=== PATIENT | male | born 1985 | race Caucasian/White ===

== ENCOUNTER 2016-08-15 11:05 | Emergency (ER) | payer BC ==
--- NOTE | 2016-08-15 11:18 | EDM.PDOC ---
ED HPI GI/ABDOMINAL - General Chief Complaint: Abdominal Pain Stated Complaint: pancreas pain Time Seen by Provider: 08/15/16 11:12 Source of Information: Reports: Patient, RN, RN notes reviewed History Limitations: Reports: No limitations - History of Present Illness INITIAL COMMENTS - FREE TEXT/NARRATIVE: C/O abdominal pain. Hx of chronic pancreatitis with recurrent abdominal pain. Denies fever, chills, diarrhea, or constipation. Pt states that his current Sx' s are the same as his past episodes. Pt states he has an appt. in [place] later this month with his specialist. Symptom Onset Date: 08/15/16 Timing/Duration: Reports: Constant Location: other (epigastric) Quality: Reports: ache, cramping Severity: severe Context: Reports: other (chronic/recurrent). Denies: sick contact, bad/ questionable food, out of country travel, recent surgery, recent trauma, lifting , activity/exercise Associated Symptoms: Reports: denies other symptoms - Related Data Allergies/ADRs: Allergies Allergy/AdvReac Type Severity Reaction Status Date / Time cats Allergy Itching Uncoded 08/15/16 11:13 Home Meds: Home Meds Omeprazole [Prilosec] 20 mg PO BID 10/27/13 [History] Amylase/Lipase/Protease [Creangela DR 24,000 Unit] 15 cap PO TIDMEALS 02/23/14 [ History] Metoclopramide [Reglan] 10 mg PO QID 02/23/14 [History] Escitalopram [Lexapro] 20 mg PO DAILY 09/02/14 [History] Ondansetron [Zofran ODT] 4 mg PO Q4H PRN #20 tab.dis 03/15/15 [Rx] oxyCODONE HCl/Acetaminophen [Endocet 10-325 mg Tablet] 1 each PO Q6HR PRN #32 tablet 04/14/15 [Rx] Pregabalin [Lyrica] 75 mg PO TID 03/07/16 [History] Past Medical History - Past Health History Medical/Surgical History: Denies Medical/Surgical History HEENT History: Reports: Impaired vision Other HEENT History: wears glasses Cardiovascular History: Reports: None Respiratory History: Reports: None Gastrointestinal History: Reports: Pancreatitis Other Gastrointestinal History: Stents placed in pancrease, sphinctor of bessy surgery . 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 Stone was removed last summer in December-Jan. Hematologic History: Reports: None Immunologic History: Reports: None Oncologic (Cancer) History: Reports: None Other Dermatologic History: allergic to cats - Infectious Disease History Infectious Disease History: Reports: None - Past Surgical History Head Surgeries/Procedures: Reports: None GI Surgical History: Reports: Cholecystectomy, Colostomy, EGD Social & Family History - Family History Family Medical History: Noncontributory Cardiac: Reports: CAD, Stent Respiratory: Reports: None GI: Reports: None Neurological: Reports: CVA Oncologic: Reports: Breast, Other (see below) Other Oncologic Family History: STOMACH - Tobacco Use Smoking Status *Q: Current Every Day Smoker Years of Tobacco use: 12 Packs/Tins Daily: 0.5 Used Tobacco, but Quit: No Month Tobacco Last Used: 2 weeks Second Hand Smoke Exposure: Yes - Caffeine Use Caffeine Use: Reports: None - Alcohol Use Days Per Week of Alcohol Use: 0 - Recreational Drug Use Recreational Drug Use: Yes Drug Use in Last 12 Months: Yes Recreational Drug Type: Reports: Marijuana/Hashish Recreational Drug Use Frequency: Weekly Recreational Drug Last Use: 07/07/2016 - Living Situation & Occupation Living situation: Reports: single, alone Occupation: unemployed ED ROS GENERAL - Review of Systems Review Of Systems: ROS reveals no pertinent complaints other than HPI. ED EXAM, GI/ABD - Physical Exam Exam: See Below Exam Limited By: No limitations General Appearance: alert, WD/WN, anxious, mild distress (due to pain), obese Eyes: bilateral: normal appearance, EOMI Throat/Mouth: Normal inspection, Normal lips, Normal teeth, Normal gums, Normal oropharynx, Normal voice, No airway compromise Head: atraumatic Neck: normal inspection, supple, non-tender, full range of motion Respiratory/Chest: no respiratory distress, lungs clear, normal breath sounds, no accessory muscle use, chest non-tender Cardiovascular: regular rate, rhythm, tachycardia GI/Abdominal: normal bowel sounds, soft, no organomegaly, no distention, no abnormal bruit, no mass, tenderness (epigastric and RUQ). No: guarding, rebound , rigidity Back Exam: normal inspection. No: CVA tenderness (L), CVA tenderness (R) Extremities: normal inspection Neurological: alert, oriented, normal cognition, normal gait, no motor/sensory deficits Psychiatric: anxious Skin Exam: Warm, Intact, Normal color, No rash, Diaphoretic Course - Vital Signs Last Recorded V/S: Last Vital Signs Temp 36.0 C 08/15/16 11:14 Pulse 113 H 08/15/16 11:14 Resp 20 08/15/16 11:14 BP 162/124 H 08/15/16 11:14 Pulse Ox 99 08/15/16 11:14 - Orders/Labs/Meds Orders: Active Orders 24 hr Category Date Time Status Peripheral IV Care [RC] . DIRECTED Care 08/15/16 11:33 Active HYDROmorphone [Dilaudid] Med 08/15/16 13:13 Once 1 mg IVPUSH ONETIME ONE Promethazine [Phenergan] Med 08/15/16 13:13 Once 50 mg IM ONETIME ONE Sodium Chloride 0.9% [Saline Flush] Med 08/15/16 11:33 Active 10 ml FLUSH ASDIRECTED PRN Peripheral IV Insertion Adult [OM.PC] Stat Oth 08/15/16 11:32 Ordered Medication Orders Hydromorphone HCl (Dilaudid) 1 mg IVPUSH ONETIME ONE Stop: 08/15/16 13:14 Promethazine HCl (Phenergan) 50 mg IM ONETIME ONE Stop: 08/15/16 13:14 Sodium Chloride (Saline Flush) 10 ml FLUSH ASDIRECTED PRN PRN Reason: Keep Vein Open Last Admin: 08/15/16 11:54 Dose: 10 ml Labs: Laboratory Tests 08/15/16 08/15/16 Range/Units 11:40 11:40 WBC 14.1 H (5.0-10.0) 10^3/uL RBC 4.68 (4.6-6.2) 10^6/uL Hgb 14.2 (14.0-18.0) g/dL Hct 43.0 (40.0-54.0) % MCV 91.9 (80-100) fL MCH 30.3 (27.0-34.0) pg MCHC 33.0 (33.0-35.0) g/dL Plt Count 218 (150-450) 10^3/uL Neut % (Auto) 76.5 H (42.2-75.2) % Lymph % (Auto) 15.2 L (20.5-50.1) % [place] % (Auto) 4.9 (2-8) % Eos % (Auto) 2.8 (1.0-3.0) % Baso % (Auto) 0.6 (0.0-1.0) % Sodium 141 (135-145) mmol/L Potassium 3.8 (3.6-5.0) mmol/L Chloride 105 (101-111) mmol/L Carbon Dioxide 26.0 (21.0-31.0) mmol/L Anion Gap 13.8 BUN 11 (7-18) mg/dL Creatinine 0.8 (0.6-1.3) mg/dL Est Cr Clr Drug Dosing 155.55 mL/min Estimated GFR (MDRD) > 60 BUN/Creatinine Ratio 13.75 Glucose 118 H (74-105) mg/dL Calcium 9.2 (8.4-10.2) mg/dl Total Bilirubin 0.8 (0.2-1.0) mg/dL AST 18 (10-42) IU/L ALT 16 (10-60) IU/L Alkaline Phosphatase 62 (42-121) IU/L Total Protein 7.2 (6.7-8.2) g/dl Albumin 4.5 (3.2-5.5) g/dl Globulin 2.7 Albumin/Globulin Ratio 1.67 Amylase 68 (28-100) U/L Lipase 58 H (22-51) U/L Meds: Medications Generic Name Dose Route Start Last Admin Trade Name Freq PRN Reason Stop Dose Admin Hydromorphone HCl 1 mg 08/15/16 13:13 Dilaudid IVPUSH 08/15/16 13:14 ONETIME ONE Promethazine HCl 50 mg 08/15/16 13:13 Phenergan IM 08/15/16 13:14 ONETIME ONE Sodium Chloride 10 ml 08/15/16 11:33 08/15/16 11:54 Saline Flush FLUSH 10 ml ASDIRECTED PRN Administration Keep Vein Open Discontinued Medications Generic Name Dose Route Start Last Admin Trade Name Freq PRN Reason Stop Dose Admin Diphenhydramine HCl 25 mg 08/15/16 11:33 08/15/16 11:52 Benadryl IVPUSH 08/15/16 11:34 25 mg ONETIME ONE Administration Hydromorphone HCl 1 mg 08/15/16 11:33 08/15/16 11:54 Dilaudid IVPUSH 08/15/16 11:34 1 mg ONETIME ONE Administration Sodium Chloride 1,000 mls @ 999 mls/hr 08/15/16 11:33 08/15/16 11:49 Normal Saline IV 08/15/16 12:33 999 mls/hr .BOLUS ONE Administration Ondansetron HCl 4 mg 08/15/16 11:33 08/15/16 11:50 Zofran IV 08/15/16 11:34 4 mg ONETIME ONE Administration Departure - Departure Time of Disposition: 13:17 Disposition: Home, Self-Care 01 Condition: fair Clinical Impression: Recurrent right upper quadrant abdominal pain, Chronic abdominal pain, History of chronic pancreatitis Vomiting Qualifiers: Vomiting type: unspecified Nausea presence: with nausea Qualified Code(s): R11.2 - Nausea with vomiting, unspecified Instructions: Abdominal Pain, Adult, [id number] Forms: ED Department Discharge Additional Instructions: Follow up in clinic with your doctor if not completely improved by tomorrow. - My Orders Last 24 Hours: My Active Orders 08/15/16 11:32 Peripheral IV Insertion Adult [OM.PC] Stat 08/15/16 11:33 Peripheral IV Care [RC] . DIRECTED Sodium Chloride 0.9% [Saline Flush] 10 ml FLUSH ASDIRECTED PRN 08/15/16 13:13 HYDROmorphone [Dilaudid] 1 mg IVPUSH ONETIME ONE Promethazine [Phenergan] 50 mg IM ONETIME ONE - Assessment/Plan Last 24 Hours: My Active Orders 08/15/16 11:32 Peripheral IV Insertion Adult [OM.PC] Stat 08/15/16 11:33 Peripheral IV Care [RC] . DIRECTED Sodium Chloride 0.9% [Saline Flush] 10 ml FLUSH ASDIRECTED PRN 08/15/16 13:13 HYDROmorphone [Dilaudid] 1 mg IVPUSH ONETIME ONE Promethazine [Phenergan] 50 mg IM ONETIME ONE
[2016-08-15] MEDS ORDERED: Sodium Chloride 0.9% 10 ML Syringe FLUSH PRN (11:33)
[2016-08-15] MEDS ORDERED: Sodium Chloride 0.9% 1,000 ML IV ONE (11:33)
[2016-08-15] MEDS ORDERED: Ondansetron 4 MG/2 ML SDV IV ONE (11:33)
[2016-08-15] MEDS ORDERED: diphenhydrAMINE 50 MG/ML SDV IVPUSH ONE (11:33)
[2016-08-15] MEDS ORDERED: HYDROmorphone 1 MG/ML Syringe IVPUSH ONE ×2 (11:33→13:13)
[2016-08-15 12:09] LABS: CHLORIDE,CL 105 mmol/L (101-111); SODIUM,NA 141 mmol/L (135-145)
[2016-08-15] MEDS ORDERED: Promethazine 25 MG/ML SDV IM ONE (13:13)
[2016-08-15 14:03] VITALS: BP 122/75
== END 2016-08-15 13:56 | disposition home or self-care (01) ==
LOC: DL.ED 11:05
DX: R10.11 Right upper quadrant pain (principal); R10.13 Epigastric pain; R11.2 Nausea with vomiting, unspecified; F41.9 Anxiety disorder, unspecified; F32.9 Major depressive disorder, single episode, unspecified; F17.210 Nicotine dependence, cigarettes, uncomplicated; Z90.49 Acquired absence of other specified parts of digestive tract; Z79.899 Other long term (current) drug therapy; Z91.09 Other allergy status, other than to drugs and biological substances
CPT/HCPCS: 36415; 80053; 82150; 83690; 85025; 96361; 96372; 96374; 96375; 96376; 99284; J1170; J1200; J2405; J2550; J7030; J7050

== ENCOUNTER 2016-10-17 15:14 | Emergency (ER) | payer BC ==
--- NOTE | 2016-10-17 15:19 | EDM.PDOC ---
ED HPI GENERAL MEDICAL PROBLEM - General Chief Complaint: Abdominal Pain Stated Complaint: PANCRITIS Time Seen by Provider: 10/17/16 15:19 Source of Information: Reports: Patient, Old records, RN, RN notes reviewed History Limitations: Reports: No limitations - History of Present Illness INITIAL COMMENTS - FREE TEXT/NARRATIVE: Complaining of onset of severe chronic/recurrent RUQ/epigastric pain this morning. Patient reports symptoms are "exactly the same" as his usual abdominal pain. Denies fever or chills. Unable to keep down his oral meds. Onset: today Location: Reports: abdomen Quality: Reports: Ache Severity: severe Improves with: Reports: None Worsens with: Reports: None Associated Symptoms: Reports: no other symptoms Right Upper Abdomen Pain Score (Numeric/FACES): 8 - Related Data Allergies Allergy/AdvReac Type Severity Reaction Status Date / Time cats Allergy Itching Uncoded 08/15/16 11:13 Home Meds: Home Meds Omeprazole [Prilosec] 20 mg PO BID 10/27/13 [History] Amylase/Lipase/Protease [Creangela DR 24,000 Unit] 15 cap PO TIDMEALS 02/23/14 [ History] Metoclopramide [Reglan] 10 mg PO QID 02/23/14 [History] Escitalopram [Lexapro] 20 mg PO DAILY 09/02/14 [History] Ondansetron [Zofran ODT] 4 mg PO Q4H PRN #20 tab.dis 03/15/15 [Rx] oxyCODONE HCl/Acetaminophen [Endocet 10-325 mg Tablet] 1 each PO Q6HR PRN #32 tablet 04/14/15 [Rx] Pregabalin [Lyrica] 75 mg PO TID 03/07/16 [History] Past Medical History - Past Health History Medical/Surgical History: Denies Medical/Surgical History HEENT History: Reports: Impaired vision Other HEENT History: wears glasses Cardiovascular History: Reports: None Respiratory History: Reports: None Gastrointestinal History: Reports: Pancreatitis Other Gastrointestinal History: Stents placed in pancrease, sphinctor of bessy surgery . 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 Stone was removed last summer in December-Jan. Hematologic History: Reports: None Immunologic History: Reports: None Oncologic (Cancer) History: Reports: None Other Dermatologic History: allergic to cats - Infectious Disease History Infectious Disease History: Reports: None - Past Surgical History Head Surgeries/Procedures: Reports: None GI Surgical History: Reports: Cholecystectomy, Colostomy, EGD Social & Family History - Family History Family Medical History: Noncontributory Cardiac: Reports: CAD, Stent Respiratory: Reports: None GI: Reports: None Neurological: Reports: CVA Oncologic: Reports: Breast, Other (see below) Other Oncologic Family History: STOMACH - Tobacco Use Smoking Status *Q: Current Every Day Smoker Years of Tobacco use: 12 Packs/Tins Daily: 0.5 Used Tobacco, but Quit: No Month Tobacco Last Used: 2 weeks Second Hand Smoke Exposure: Yes - Caffeine Use Caffeine Use: Reports: None - Alcohol Use Days Per Week of Alcohol Use: 0 - Recreational Drug Use Recreational Drug Use: Yes Drug Use in Last 12 Months: Yes Recreational Drug Type: Reports: Marijuana/Hashish Recreational Drug Use Frequency: Weekly Recreational Drug Last Use: 07/07/2016 - Living Situation & Occupation Living situation: Reports: single, alone Occupation: unemployed ED ROS GENERAL - Review of Systems Review Of Systems: ROS reveals no pertinent complaints other than HPI. ED EXAM, GI/ABD - Physical Exam Exam: See Below Exam Limited By: No limitations General Appearance: alert, WD/WN, no apparent distress Eyes: bilateral: normal appearance Ears: normal external exam, normal canal, hearing grossly normal, normal TMs Nose: normal inspection, normal mucosa, no blood Throat/Mouth: Normal inspection, Normal lips, Normal teeth, Normal gums, Normal oropharynx, Normal voice, No airway compromise Head: atraumatic, normocephalic Neck: normal inspection, supple, non-tender, full range of motion Respiratory/Chest: no respiratory distress, lungs clear, normal breath sounds, no accessory muscle use, chest non-tender Cardiovascular: regular rate, rhythm, tachycardia GI/Abdominal: Other (RUQ tenderness) Back Exam: normal inspection, full range of motion, NT Extremities: normal inspection, normal range of motion, non-tender, normal capillary refill, no pedal edema Neurological: alert, oriented, CN II-XII intact, normal cognition, normal gait, normal reflexes, no motor/sensory deficits Psychiatric: normal affect, normal mood Skin Exam: Warm, Dry, Intact, Normal color, No rash Course - Vital Signs Last Recorded V/S: Last Vital Signs Temp 36.0 C 10/17/16 15:27 Pulse 97 10/17/16 15:27 Resp 20 10/17/16 15:27 BP 161/106 H 10/17/16 15:27 Pulse Ox 97 10/17/16 15:27 - Orders/Labs/Meds Orders: Active Orders 24 hr Category Date Time Status Peripheral IV Care [RC] . DIRECTED Care 10/17/16 15:37 Active Sodium Chloride 0.9% [Saline Flush] Med 10/17/16 15:36 Active 10 ml FLUSH ASDIRECTED PRN Peripheral IV Insertion Adult [OM.PC] Stat Oth 10/17/16 15:36 Ordered Medication Orders Sodium Chloride (Saline Flush) 10 ml FLUSH ASDIRECTED PRN PRN Reason: Keep Vein Open Last Admin: 10/17/16 16:03 Dose: 10 ml Labs: Laboratory Tests 10/17/16 10/17/16 Range/Units 15:45 15:45 WBC 17.1 H (5.0-10.0) 10^3/uL RBC 5.02 (4.6-6.2) 10^6/uL Hgb 15.2 (14.0-18.0) g/dL Hct 46.4 (40.0-54.0) % MCV 92.4 (80-100) fL MCH 30.3 (27.0-34.0) pg MCHC 32.8 L (33.0-35.0) g/dL Plt Count 219 (150-450) 10^3/uL Neut % (Auto) 74.2 (42.2-75.2) % Lymph % (Auto) 16.9 L (20.5-50.1) % [place] % (Auto) 6.7 (2-8) % Eos % (Auto) 1.8 (1.0-3.0) % Baso % (Auto) 0.4 (0.0-1.0) % Sodium 141 (135-145) mmol/L Potassium 4.0 (3.6-5.0) mmol/L Chloride 107 (101-111) mmol/L Carbon Dioxide 27.0 (21.0-31.0) mmol/L Anion Gap 11.0 BUN 14 (7-18) mg/dL Creatinine 0.8 (0.6-1.3) mg/dL Est Cr Clr Drug Dosing 155.55 mL/min Estimated GFR (MDRD) > 60 BUN/Creatinine Ratio 17.50 Glucose 113 H (74-105) mg/dL Calcium 9.4 (8.4-10.2) mg/dl Total Bilirubin 0.8 (0.2-1.0) mg/dL AST 20 (10-42) IU/L ALT 17 (10-60) IU/L Alkaline Phosphatase 73 (42-121) IU/L Total Protein 7.4 (6.7-8.2) g/dl Albumin 4.6 (3.2-5.5) g/dl Globulin 2.8 Albumin/Globulin Ratio 1.64 Amylase 69 (28-100) U/L Lipase 47 (22-51) U/L Meds: Medications Generic Name Dose Route Start Last Admin Trade Name Freq PRN Reason Stop Dose Admin Sodium Chloride 10 ml 10/17/16 15:36 10/17/16 16:03 Saline Flush FLUSH 10 ml ASDIRECTED PRN Administration Keep Vein Open Discontinued Medications Generic Name Dose Route Start Last Admin Trade Name Freq PRN Reason Stop Dose Admin Diphenhydramine HCl 25 mg 10/17/16 15:36 10/17/16 16:04 Benadryl IVPUSH 10/17/16 15:37 25 mg ONETIME ONE Administration Diphenhydramine HCl 25 mg 10/17/16 16:28 10/17/16 16:47 Benadryl IVPUSH 10/17/16 16:29 25 mg ONETIME ONE Administration Hydromorphone HCl 1 mg 10/17/16 15:36 10/17/16 16:05 Dilaudid IVPUSH 10/17/16 15:37 1 mg ONETIME ONE Administration Sodium Chloride 1,000 mls @ 999 mls/hr 10/17/16 15:36 10/17/16 16:01 Normal Saline IV 10/17/16 16:36 999 mls/hr .BOLUS ONE Administration Lorazepam 2 mg 10/17/16 16:28 10/17/16 16:48 Ativan IVPUSH 10/17/16 16:29 2 mg ONETIME ONE Administration Metoclopramide HCl 10 mg 10/17/16 16:28 10/17/16 16:50 Reglan IVPUSH 10/17/16 16:29 10 mg ONETIME ONE Administration Ondansetron HCl 4 mg 10/17/16 15:36 10/17/16 16:02 Zofran IV 10/17/16 15:37 4 mg ONETIME ONE Administration Departure - Departure Time of Disposition: 17:42 Disposition: Home, Self-Care 01 Condition: fair Clinical Impression: Recurrent right upper quadrant abdominal pain, History of chronic pancreatitis - Discharge Information Instructions: Abdominal Pain, Adult, [id number] Referrals: Max Gordon MD [Primary Care Provider] - Forms: ED Department Discharge Additional Instructions: Follow up with Dr. Gordon tomorrow if not completely improved. Follow up with your specialist this month as scheduled. - My Orders Last 24 Hours: My Active Orders 10/17/16 15:36 Sodium Chloride 0.9% [Saline Flush] 10 ml FLUSH ASDIRECTED PRN Peripheral IV Insertion Adult [OM.PC] Stat 10/17/16 15:37 Peripheral IV Care [RC] . DIRECTED - Assessment/Plan Last 24 Hours: My Active Orders 10/17/16 15:36 Sodium Chloride 0.9% [Saline Flush] 10 ml FLUSH ASDIRECTED PRN Peripheral IV Insertion Adult [OM.PC] Stat 10/17/16 15:37 Peripheral IV Care [RC] . DIRECTED
[2016-10-17 15:28] VITALS: BP 161/106
[2016-10-17] MEDS ORDERED: Sodium Chloride 0.9% 1,000 ML IV ONE (15:36)
[2016-10-17] MEDS ORDERED: HYDROmorphone 1 MG/ML Syringe IVPUSH ONE (15:36)
[2016-10-17] MEDS ORDERED: Sodium Chloride 0.9% 10 ML Syringe FLUSH PRN (15:36)
[2016-10-17] MEDS ORDERED: diphenhydrAMINE 50 MG/ML SDV IVPUSH ONE ×2 (15:36→16:28)
[2016-10-17] MEDS ORDERED: Ondansetron 4 MG/2 ML SDV IV ONE (15:36)
[2016-10-17 16:13] LABS: CHLORIDE,CL 107 mmol/L (101-111); SODIUM,NA 141 mmol/L (135-145)
[2016-10-17] MEDS ORDERED: Metoclopramide 10 MG/2 ML SDV IVPUSH ONE (16:28)
[2016-10-17] MEDS ORDERED: LORazepam 2 MG/ML Syringe IVPUSH ONE (16:28)
== END 2016-10-17 18:17 | disposition home or self-care (01) ==
LOC: DL.ED 15:14
DX: K86.1 Other chronic pancreatitis (principal); F32.9 Major depressive disorder, single episode, unspecified; F41.9 Anxiety disorder, unspecified; K21.9 Gastro-esophageal reflux disease without esophagitis; F17.210 Nicotine dependence, cigarettes, uncomplicated; Z90.49 Acquired absence of other specified parts of digestive tract; Z79.899 Other long term (current) drug therapy
CPT/HCPCS: 36415; 80053; 82150; 83690; 85025; 96361; 96374; 96375; 96376; 99283; J1170; J1200; J2060; J2405; J2765; J7030; J7050

== ENCOUNTER 2016-10-17 21:02 | Emergency (ER) | payer BC ==
[2016-10-17 21:18] VITALS: BP 149/86
[2016-10-17] MEDS ORDERED: HYDROmorphone 1 MG/ML Syringe IVPUSH ONE ×2 (21:29→22:25)
[2016-10-17] MEDS ORDERED: Promethazine 25 MG/ML SDV IM ONE (21:29)
--- NOTE | 2016-10-17 21:35 | EDM.PDOC ---
ED HPI GENERAL MEDICAL PROBLEM - General Chief Complaint: Abdominal Pain Stated Complaint: PANCREATITIS Time Seen by Provider: 10/17/16 21:25 Source of Information: Reports: Patient History Limitations: Reports: No limitations - History of Present Illness INITIAL COMMENTS - FREE TEXT/NARRATIVE: This 31 yo male patient returns to the ED for the second time this afternoon with abdominal pain and nausea/vomiting. The patient reports his symptoms are identical to earlier. The patient reports his pain came back about 1 hour after leaving the ED (the patient left the ED at 1830). The patient reports he has another appointment with his specialist scheduled for November 06. The patient was given Benadryl, Ativan, Dilaudid, Zofran, and Reglan on his previous visit. Onset: today Duration: Constant, Getting worse Location: Reports: abdomen Quality: Reports: Ache, Sharp Severity: severe Improves with: Reports: None Worsens with: Reports: None Context: Reports: Other (chronic pancreatitis) Right Upper Abdomen Pain Score (Numeric/FACES): 8 - Related Data Allergies Allergy/AdvReac Type Severity Reaction Status Date / Time cats Allergy Itching Uncoded 10/17/16 21:18 Home Meds: Home Meds Omeprazole [Prilosec] 20 mg PO BID 10/27/13 [History] Amylase/Lipase/Protease [Creon DR 24,000 Unit] 15 cap PO TIDMEALS 02/23/14 [ History] Metoclopramide [Reglan] 10 mg PO QID 02/23/14 [History] Escitalopram [Lexapro] 20 mg PO DAILY 09/02/14 [History] Ondansetron [Zofran ODT] 4 mg PO Q4H PRN #20 tab.dis 03/15/15 [Rx] oxyCODONE HCl/Acetaminophen [Endocet 10-325 mg Tablet] 1 each PO Q6HR PRN #32 tablet 04/14/15 [Rx] Pregabalin [Lyrica] 75 mg PO TID 03/07/16 [History] Past Medical History - Past Health History Medical/Surgical History: Denies Medical/Surgical History HEENT History: Reports: Impaired vision Other HEENT History: wears glasses Cardiovascular History: Reports: None Respiratory History: Reports: None Gastrointestinal History: Reports: Pancreatitis Other Gastrointestinal History: Stents placed in pancrease, sphinctor of bessy surgery . 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 Stone was removed last summer in December-Jan. Hematologic History: Reports: None Immunologic History: Reports: None Oncologic (Cancer) History: Reports: None Other Dermatologic History: allergic to cats - Infectious Disease History Infectious Disease History: Reports: None - Past Surgical History Head Surgeries/Procedures: Reports: None GI Surgical History: Reports: Cholecystectomy, Colostomy, EGD Social & Family History - Family History Family Medical History: Noncontributory Cardiac: Reports: CAD, Stent Respiratory: Reports: None GI: Reports: None Neurological: Reports: CVA Oncologic: Reports: Breast, Other (see below) Other Oncologic Family History: STOMACH - Tobacco Use Smoking Status *Q: Current Every Day Smoker Years of Tobacco use: 13 Packs/Tins Daily: 0.5 Used Tobacco, but Quit: No Month Tobacco Last Used: 2 weeks Second Hand Smoke Exposure: Yes - Caffeine Use Caffeine Use: Reports: None - Alcohol Use Days Per Week of Alcohol Use: 0 - Recreational Drug Use Recreational Drug Use: Yes Drug Use in Last 12 Months: Yes Recreational Drug Type: Reports: Marijuana/Hashish Recreational Drug Use Frequency: Socially Recreational Drug Last Use: 07/07/2016 - Living Situation & Occupation Living situation: Reports: single, alone Occupation: unemployed ED ROS GENERAL - Review of Systems Review Of Systems: ROS reveals no pertinent complaints other than HPI. ED EXAM, GI/ABD - Physical Exam Exam: See Below Exam Limited By: No limitations General Appearance: alert, WD/WN, anxious, severe distress, obese Eyes: bilateral: normal appearance, EOMI Ears: normal external exam, normal canal, hearing grossly normal, normal TMs Nose: normal inspection, normal mucosa, no blood Throat/Mouth: Normal inspection, Normal lips, Normal teeth, Normal gums, Normal oropharynx, Normal voice, No airway compromise Head: atraumatic, normocephalic Neck: normal inspection, supple, non-tender, full range of motion Respiratory/Chest: no respiratory distress, lungs clear, normal breath sounds, no accessory muscle use, chest non-tender Cardiovascular: normal peripheral pulses, regular rate, rhythm, no edema, no gallop, no JVD, no murmur, no rub GI/Abdominal: Normal Bowel Sounds, Soft, No Organomegaly, No Distention, No Abnormal Bruit, No Mass, Tenderness (RUQ) (Male) Exam: Deferred Rectal (Males) Exam: Deferred Back Exam: normal inspection, full range of motion, NT Extremities: normal inspection, normal range of motion, non-tender, normal capillary refill, no pedal edema Neurological: alert, oriented, CN II-XII intact, normal cognition, normal gait, normal reflexes, no motor/sensory deficits Psychiatric: normal affect, normal mood Skin Exam: Warm, Dry, Intact, Normal color, No rash Lymphatic: no adenopathy Course - Vital Signs Last Recorded V/S: Last Vital Signs Temp 36.7 C 10/17/16 21:15 Pulse 97 10/17/16 21:15 Resp 18 10/17/16 21:15 BP 149/86 H 10/17/16 21:15 Pulse Ox 98 10/17/16 21:15 - Orders/Labs/Meds Orders: Active Orders 24 hr Category Date Time Status HYDROmorphone [Dilaudid] Med 10/17/16 22:25 Once 0.5 mg IVPUSH ONETIME ONE Meds: Medications Discontinued Medications Generic Name Dose Route Start Last Admin Trade Name Freq PRN Reason Stop Dose Admin Hydromorphone HCl 1 mg 10/17/16 21:29 10/17/16 21:41 Dilaudid IVPUSH 10/17/16 21:30 1 mg ONETIME ONE Administration Promethazine HCl 50 mg 10/17/16 21:29 10/17/16 21:40 Phenergan IM 10/17/16 21:30 50 mg ONETIME ONE Administration - Re-Assessments/Exams Free Text/Narrative Re-Assessment/Exam: 10/17/16 22:26 The patient had been sleeping for approximately 30 minutes. When I reassessed the patient, he started to report increased pain again. The patient was given an additional dose of Dilaudid (0.5 mg). Departure - Departure Time of Disposition: 22:27 Disposition: Home, Self-Care 01 Condition: fair Clinical Impression: Chronic pancreatitis - Discharge Information Instructions: Acute Pancreatitis, [id number] Forms: ED Department Discharge Care Plan Goals: The patient was advised of the examination results during the visit. Since the patient has been seen twice in the ED this afternoon, the patient should follow- up with his primary care facility tomorrow for continued evaluation and management. If the patient has any additional symptoms or concerns, the patient should either contact his primary care facility or his specialist for further evaluation and management. - My Orders Last 24 Hours: My Active Orders 10/17/16 22:25 HYDROmorphone [Dilaudid] 0.5 mg IVPUSH ONETIME ONE - Assessment/Plan Last 24 Hours: My Active Orders 10/17/16 22:25 HYDROmorphone [Dilaudid] 0.5 mg IVPUSH ONETIME ONE
== END 2016-10-17 22:45 | disposition home or self-care (01) ==
LOC: DL.ED 21:02
DX: K86.1 Other chronic pancreatitis (principal); F41.9 Anxiety disorder, unspecified; F32.9 Major depressive disorder, single episode, unspecified; F17.210 Nicotine dependence, cigarettes, uncomplicated; Z90.49 Acquired absence of other specified parts of digestive tract; Z79.899 Other long term (current) drug therapy; K21.9 Gastro-esophageal reflux disease without esophagitis
CPT/HCPCS: 36415; 80053; 82150; 83690; 85025; 96361; 96372; 96374; 96375; 96376; 99283; J1170; J1200; J2060; J2405; J2550; J2765; J7030; J7050

== ENCOUNTER 2016-12-03 16:16 | Emergency (ER) | payer BC, MEDICAID ==
[2016-12-03] MEDS ORDERED: Sodium Chloride 0.9% 10 ML Syringe FLUSH PRN (17:00)
[2016-12-03] MEDS ORDERED: HYDROmorphone 1 MG/ML Syringe IVPUSH ONE ×2 (17:01→18:10)
[2016-12-03] MEDS ORDERED: Ondansetron 4 MG/2 ML SDV IV ONE (17:01)
[2016-12-03] MEDS ORDERED: Sodium Chloride 0.9% 1,000 ML IV ONE (17:01)
[2016-12-03 17:39] LABS: CHLORIDE,CL 104 mmol/L (101-111); SODIUM,NA 140 mmol/L (135-145)
[2016-12-03] MEDS ORDERED: Iopamidol 612 MG/ML 100 ML Bottle IVPUSH ONE (17:59)
[2016-12-03] MEDS ORDERED: diphenhydrAMINE 50 MG/ML SDV IVPUSH ONE (18:11)
--- NOTE | 2016-12-03 18:30 | EDM.PDOC ---
ED HPI GENERAL MEDICAL PROBLEM - General Chief Complaint: Abdominal Pain Stated Complaint: PANCREAS PROBLEM [phone] Time Seen by Provider: 12/03/16 17:00 Source of Information: Reports: Patient History Limitations: Reports: No Limitations - History of Present Illness INITIAL COMMENTS - FREE TEXT/NARRATIVE: Pt states that he was seen for pancreatitis on yesterday, and believes he is having another flare up. States that he took his pain medication at home but was running out and didn't want to use them up so he came to get re-evaluated. Denies n/v/d. Currently flailing around on stretcher. No other complaitns. States that he normally receives pain medication , zofran and benadryl and he feels better Onset: Today Duration: Getting Worse Location: Reports: Abdomen Quality: Reports: Same as Previous Episode Severity: Moderate Improves with: Reports: Medication Worsens with: Reports: Medication Associated Symptoms: Reports: No Other Symptoms Treatments [employer]: Reports: Other Medication(s) (oxycodone) Right Upper Abdominal Pain Score (Numeric/FACES): 7 - Related Data Allergies Allergy/AdvReac Type Severity Reaction Status Date / Time cats Allergy Itching Uncoded 12/03/16 16:38 Home Meds: Home Meds Omeprazole [Prilosec] 20 mg PO BID 10/27/13 [History] Amylase/Lipase/Protease [Parag DR 24,000 Unit] 15 cap PO TIDMEALS 02/23/14 [ History] Escitalopram [Lexapro] 20 mg PO DAILY 09/02/14 [History] Ondansetron [Zofran ODT] 4 mg PO Q4H PRN #20 tab.dis 03/15/15 [Rx] oxyCODONE HCl/Acetaminophen [Endocet 10-325 mg Tablet] 1 each PO Q6HR PRN #32 tablet 04/14/15 [Rx] Pregabalin [Lyrica] 75 mg PO TID 03/07/16 [History] Past Medical History - Past Health History Medical/Surgical History: Denies Medical/Surgical History HEENT History: Reports: Impaired Vision Other HEENT History: wears glasses Cardiovascular History: Reports: None Respiratory History: Reports: None Gastrointestinal History: Reports: Pancreatitis Other Gastrointestinal History: Stents placed in pancrease, sphinctor of bessy surgery . 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 Stone was removed last summer in December-Jan. Hematologic History: Reports: None Immunologic History: Reports: None Oncologic (Cancer) History: Reports: None Other Dermatologic History: allergic to cats - Infectious Disease History Infectious Disease History: Reports: None - Past Surgical History Head Surgeries/Procedures: Reports: None GI Surgical History: Reports: Cholecystectomy, Colostomy, EGD Social & Family History - Family History Family Medical History: Unobtainable Cardiac: Reports: CAD, Stent Respiratory: Reports: None GI: Reports: None Neurological: Reports: CVA Oncologic: Reports: Breast, Other (See Below) Other Oncologic Family History: STOMACH - Tobacco Use Smoking Status *Q: Current Every Day Smoker Years of Tobacco use: 15 Packs/Tins Daily: 0.5 Used Tobacco, but Quit: No Month Tobacco Last Used: 2 weeks Second Hand Smoke Exposure: Yes - Caffeine Use Caffeine Use: Reports: None - Alcohol Use Days Per Week of Alcohol Use: 0 - Recreational Drug Use Recreational Drug Use: Yes Drug Use in Last 12 Months: Yes Recreational Drug Type: Reports: Marijuana/Hashish Recreational Drug Use Frequency: Socially Recreational Drug Last Use: 12/01/2016 - Living Situation & Occupation Living situation: Reports: Single, Alone Occupation: Unemployed ED ROS GENERAL - Review of Systems Review Of Systems: ROS reveals no pertinent complaints other than HPI. ED EXAM, GI/ABD - Physical Exam Exam: See Below Exam Limited By: No Limitations General Appearance: Alert, WD/WN, No Apparent Distress Eyes: Bilateral: Normal Appearance, EOMI Respiratory/Chest: No Respiratory Distress, Lungs Clear, Normal Breath Sounds, No Accessory Muscle Use, Chest Non-Tender Cardiovascular: Normal Peripheral Pulses, Regular Rate, Rhythm, No Edema, No Gallop, No JVD, No Murmur, No Rub GI/Abdominal: Normal Bowel Sounds, Soft, No Organomegaly, No Distention, No Abnormal Bruit, No Mass, Tenderness, Guarding Neurological: Alert, Oriented, CN II-XII Intact, Normal Cognition, Normal Gait, Normal Reflexes, No Motor/Sensory Deficits Course - Vital Signs Last Recorded V/S: Last Vital Signs Temp 98.8 F 12/03/16 16:35 Pulse 104 H 12/03/16 16:35 Resp 16 12/03/16 16:35 BP 119/80 12/03/16 16:35 Pulse Ox 98 12/03/16 16:35 - Orders/Labs/Meds Orders: Active Orders 24 hr Category Date Time Status Blood Glucose Check, Bedside [RC] ONETIME Care 12/03/16 16:47 Active Sodium Chloride 0.9% [Saline Flush] Med 12/03/16 17:00 Active 10 ml FLUSH ASDIRECTED PRN Saline Lock Insert [OM.PC] Stat Oth 12/03/16 17:00 Ordered Medication Orders Sodium Chloride (Saline Flush) 10 ml FLUSH ASDIRECTED PRN PRN Reason: Keep Vein Open Labs: Laboratory Tests 12/03/16 12/03/16 12/03/16 Range/Units 16:37 17:08 17:08 WBC 11.8 H (5.0-10.0) 10^3/uL RBC 4.64 (4.6-6.2) 10^6/uL Hgb 14.2 (14.0-18.0) g/dL Hct 42.2 (40.0-54.0) % MCV 90.9 (80-100) fL MCH 30.6 (27.0-34.0) pg MCHC 33.6 (33.0-35.0) g/dL Plt Count 185 (150-450) 10^3/uL Neut % (Auto) 70.1 (42.2-75.2) % Lymph % (Auto) 21.6 (20.5-50.1) % [place] % (Auto) 6.5 (2-8) % Eos % (Auto) 1.4 (1.0-3.0) % Baso % (Auto) 0.4 (0.0-1.0) % Sodium 140 (135-145) mmol/L Potassium 3.8 (3.6-5.0) mmol/L Chloride 104 (101-111) mmol/L Carbon Dioxide 24.0 (21.0-31.0) mmol/L Anion Gap 15.8 BUN 11 (7-18) mg/dL Creatinine 0.8 (0.6-1.3) mg/dL Est Cr Clr Drug Dosing 155.55 mL/min Estimated GFR (MDRD) > 60 Glucose 101 (74-105) mg/dL POC Glucose 101 (70-105) mg/dl Calcium 9.2 (8.4-10.2) mg/dl Amylase 49 (28-100) U/L Lipase 26 (22-51) U/L Meds: Medications Generic Name Dose Route Start Last Admin Trade Name Freq PRN Reason Stop Dose Admin Sodium Chloride 10 ml 12/03/16 17:00 Saline Flush FLUSH ASDIRECTED PRN Keep Vein Open Discontinued Medications Generic Name Dose Route Start Last Admin Trade Name Freq PRN Reason Stop Dose Admin Diphenhydramine HCl 25 mg 12/03/16 18:11 12/03/16 18:36 Benadryl IVPUSH 12/03/16 18:12 25 mg ONETIME ONE Administration Hydromorphone HCl 0.5 mg 12/03/16 17:01 12/03/16 17:14 Dilaudid IVPUSH 12/03/16 17:02 0.5 mg ONETIME ONE Administration Hydromorphone HCl 0.5 mg 12/03/16 18:10 12/03/16 18:36 Dilaudid IVPUSH 12/03/16 18:11 0.5 mg ONETIME ONE Administration Sodium Chloride 1,000 mls @ 999 mls/hr 12/03/16 17:01 12/03/16 17:14 Normal Saline IV 12/03/16 18:01 999 mls/hr .BOLUS ONE Administration Iopamidol 100 ml 12/03/16 17:59 12/03/16 18:10 Isovue-300 (61%) IVPUSH 12/03/16 18:00 100 ml ONETIME ONE Administration Ondansetron HCl 4 mg 12/03/16 17:01 12/03/16 17:14 Zofran IV 12/03/16 17:02 4 mg ONETIME ONE Administration - Re-Assessments/Exams Free Text/Narrative Re-Assessment/Exam: 12/03/16 18:59 No acute pancreatitis or acute abdomen. Pt states that per Dr. epstein at [facility], he does not have elvated labs with his pancreatitis. States that he has a 10am appt with Dr. Brewster in the morning that he will follow up with. encouraged to continue his pain medication, drink plenty of fluids and rest until tomorrow's appt. Departure - Departure Time of Disposition: 19:01 Disposition: Refer to Observation Clinical Impression: Abdominal pain Qualifiers: Abdominal location: epigastric Qualified Code(s): R10.13 - Epigastric pain - Discharge Information Instructions: Abdominal Pain, Adult, [id number] Forms: ED Department Discharge Additional Instructions: Take your pain medication as needed for abdominal pain. Drink plenty of fluids and get some rest. Follow up with Dr. brewster in the am for follow up. Let him know that you were seen in the ER today as he may want to order more test or be able to request the results of today's visit. - My Orders Last 24 Hours: My Active Orders 12/03/16 16:47 Blood Glucose Check, Bedside [RC] ONETIME 12/03/16 17:00 Sodium Chloride 0.9% [Saline Flush] 10 ml FLUSH ASDIRECTED PRN Saline Lock Insert [OM.PC] Stat - Assessment/Plan Last 24 Hours: My Active Orders 12/03/16 16:47 Blood Glucose Check, Bedside [RC] ONETIME 12/03/16 17:00 Sodium Chloride 0.9% [Saline Flush] 10 ml FLUSH ASDIRECTED PRN Saline Lock Insert [OM.PC] Stat
[2016-12-03 19:06] VITALS: BP 118/80
== END 2016-12-03 19:18 | disposition home or self-care (01) ==
LOC: DL.ED 16:16
DX: R10.13 Epigastric pain (principal); Z90.49 Acquired absence of other specified parts of digestive tract; K57.30 Diverticulosis of large intestine without perforation or abscess without bleeding; F41.9 Anxiety disorder, unspecified; F32.9 Major depressive disorder, single episode, unspecified; Z79.899 Other long term (current) drug therapy; Z91.048 Other nonmedicinal substance allergy status; F17.210 Nicotine dependence, cigarettes, uncomplicated; F12.980 Cannabis use, unspecified with anxiety disorder
CPT/HCPCS: 36415; 74177; 80048; 82150; 82962; 83690; 85025; 96365; 96375; 96376; 99284; J1170; J1200; J2405; J7030; Q9967

== ENCOUNTER 2016-12-04 06:14 | Emergency (ER) | payer MEDICAID ==
[2016-12-04] MEDS ORDERED: diphenhydrAMINE 50 MG/ML SDV IVPUSH ONE (06:32)
[2016-12-04] MEDS ORDERED: Ondansetron 4 MG/2 ML SDV IV ONE (06:33)
[2016-12-04] MEDS ORDERED: HYDROmorphone 1 MG/ML Syringe IVPUSH ONE ×2 (06:33→07:50)
[2016-12-04] MEDS ORDERED: Sodium Chloride 0.9% 1,000 ML IV ONE (06:34)
[2016-12-04 07:13] LABS: CHLORIDE,CL 104 mmol/L (101-111); SODIUM,NA 140 mmol/L (135-145)
--- NOTE | 2016-12-04 07:33 | EDM.PDOC ---
ED HPI GENERAL MEDICAL PROBLEM - General Chief Complaint: Abdominal Pain Stated Complaint: PANCREAS PROBLEMS Time Seen by Provider: 12/04/16 07:18 Source of Information: Reports: Patient History Limitations: Reports: No Limitations - History of Present Illness INITIAL COMMENTS - FREE TEXT/NARRATIVE: Pt was here last night for c/o abdominal pain due to h/o pancreatitis. Lab and imaging obtained revealed no acute process. Pt returns stating that he started having the abdominal pain again and needed some relief. States that he has an appointment this am with Dr. Cruz to establish care. Denies eating but tried to take in some fluids and began vomiting. No vomiting noted currently. Onset: Today Onset Time: 05:00 Duration: Getting Worse Location: Reports: Abdomen Quality: Reports: Same as Previous Episode Severity: Moderate Improves with: Reports: Medication Worsens with: Reports: None Context: Reports: Activity Associated Symptoms: Reports: Nausea/Vomiting Left Abdomen Pain Score (Numeric/FACES): 8 - Related Data Allergies Allergy/AdvReac Type Severity Reaction Status Date / Time cats Allergy Itching Uncoded 12/04/16 06:24 Home Meds: Home Meds Omeprazole [Prilosec] 20 mg PO BID 10/27/13 [History] Amylase/Lipase/Protease [Parag DR 24,000 Unit] 15 cap PO TIDMEALS 02/23/14 [ History] Escitalopram [Lexapro] 20 mg PO DAILY 09/02/14 [History] Ondansetron [Zofran ODT] 4 mg PO Q4H PRN #20 tab.dis 03/15/15 [Rx] oxyCODONE HCl/Acetaminophen [Endocet 10-325 mg Tablet] 1 each PO Q6HR PRN #32 tablet 04/14/15 [Rx] Pregabalin [Lyrica] 75 mg PO TID 03/07/16 [History] Past Medical History - Past Health History Medical/Surgical History: Denies Medical/Surgical History HEENT History: Reports: Impaired Vision Other HEENT History: wears glasses Cardiovascular History: Reports: None Respiratory History: Reports: None Gastrointestinal History: Reports: Pancreatitis Other Gastrointestinal History: Stents placed in pancrease, sphinctor of bessy surgery . 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 Stone was removed last summer in December-Jan. Hematologic History: Reports: None Immunologic History: Reports: None Oncologic (Cancer) History: Reports: None Other Dermatologic History: allergic to cats - Infectious Disease History Infectious Disease History: Reports: None - Past Surgical History Head Surgeries/Procedures: Reports: None GI Surgical History: Reports: Cholecystectomy, Colostomy, EGD Social & Family History - Family History Family Medical History: Unobtainable Cardiac: Reports: CAD, Stent Respiratory: Reports: None GI: Reports: None Neurological: Reports: CVA Oncologic: Reports: Breast, Other (See Below) Other Oncologic Family History: STOMACH - Tobacco Use Smoking Status *Q: Current Every Day Smoker Years of Tobacco use: 18 Packs/Tins Daily: 0.2 Used Tobacco, but Quit: No Month Tobacco Last Used: 2 weeks Second Hand Smoke Exposure: No - Caffeine Use Caffeine Use: Reports: None - Alcohol Use Days Per Week of Alcohol Use: 0 - Recreational Drug Use Recreational Drug Use: Yes Drug Use in Last 12 Months: Yes Recreational Drug Type: Reports: Marijuana/Hashish Recreational Drug Use Frequency: Weekly Recreational Drug Last Use: 12/01/2016 - Living Situation & Occupation Living situation: Reports: Single, Alone Occupation: Unemployed ED ROS GENERAL - Review of Systems Review Of Systems: ROS reveals no pertinent complaints other than HPI. ED EXAM, GI/ABD - Physical Exam Exam: See Below Exam Limited By: No Limitations General Appearance: Alert, WD/WN, Mild Distress Eyes: Bilateral: Normal Appearance Respiratory/Chest: No Respiratory Distress, Lungs Clear, Normal Breath Sounds, No Accessory Muscle Use, Chest Non-Tender Cardiovascular: Normal Peripheral Pulses, Regular Rate, Rhythm, No Edema, No Gallop, No JVD, No Murmur, No Rub GI/Abdominal: Normal Bowel Sounds, Soft, No Organomegaly, No Distention, No Abnormal Bruit, No Mass, Tenderness, Guarding Neurological: Alert, Oriented, CN II-XII Intact, Normal Cognition, Normal Gait, Normal Reflexes, No Motor/Sensory Deficits Course - Vital Signs Last Recorded V/S: Last Vital Signs Temp 98 F 12/04/16 06:18 Pulse 88 12/04/16 07:41 Resp 20 12/04/16 07:41 BP 135/79 12/04/16 07:41 Pulse Ox 98 12/04/16 07:41 - Orders/Labs/Meds Labs: Laboratory Tests 12/04/16 12/04/16 Range/Units 06:28 06:28 WBC 19.3 H (5.0-10.0) 10^3/uL RBC 4.82 (4.6-6.2) 10^6/uL Hgb 14.5 (14.0-18.0) g/dL Hct 44.0 (40.0-54.0) % MCV 91.3 (80-100) fL MCH 30.1 (27.0-34.0) pg MCHC 33.0 (33.0-35.0) g/dL Plt Count 220 (150-450) 10^3/uL Neut % (Auto) 75.3 H (42.2-75.2) % Lymph % (Auto) 15.9 L (20.5-50.1) % [place] % (Auto) 6.6 (2-8) % Eos % (Auto) 1.9 (1.0-3.0) % Baso % (Auto) 0.3 (0.0-1.0) % Sodium 140 (135-145) mmol/L Potassium 3.5 L (3.6-5.0) mmol/L Chloride 104 (101-111) mmol/L Carbon Dioxide 23.0 (21.0-31.0) mmol/L Anion Gap 16.5 BUN 10 (7-18) mg/dL Creatinine 0.9 (0.6-1.3) mg/dL Est Cr Clr Drug Dosing TNP Estimated GFR (MDRD) > 60 BUN/Creatinine Ratio 11.11 Glucose 116 H (74-105) mg/dL Calcium 9.3 (8.4-10.2) mg/dl Total Bilirubin 1.5 H (0.2-1.0) mg/dL AST 24 (10-42) IU/L ALT 24 (10-60) IU/L Alkaline Phosphatase 56 (42-121) IU/L Total Protein 7.5 (6.7-8.2) g/dl Albumin 4.8 (3.2-5.5) g/dl Globulin 2.7 Albumin/Globulin Ratio 1.78 Amylase 53 (28-100) U/L Lipase 36 (22-51) U/L Meds: Medications Discontinued Medications Generic Name Dose Route Start Last Admin Trade Name Aminah PRN Reason Stop Dose Admin Diphenhydramine HCl 25 mg 12/04/16 06:32 12/04/16 06:43 Benadryl IVPUSH 12/04/16 06:33 25 mg ONETIME ONE Administration Hydromorphone HCl 1 mg 12/04/16 06:33 12/04/16 06:43 Dilaudid IVPUSH 12/04/16 06:34 1 mg ONETIME ONE Administration Hydromorphone HCl 1 mg 12/04/16 07:50 12/04/16 07:57 Dilaudid IVPUSH 12/04/16 07:51 1 mg ONETIME ONE Administration Sodium Chloride 1,000 mls @ 999 mls/hr 12/04/16 06:34 12/04/16 06:41 Normal Saline IV 12/04/16 07:34 999 mls/hr .BOLUS ONE Administration Ondansetron HCl 4 mg 12/04/16 06:33 12/04/16 06:43 Zofran IV 12/04/16 06:34 4 mg ONETIME ONE Administration - Re-Assessments/Exams Free Text/Narrative Re-Assessment/Exam: 12/04/16 08:12 Pt feels better. more comfortable than at arrival. Lipase and amylase WNL. Patient wants to be released in order to make his 10 am appointment. Departure - Departure Time of Disposition: 08:19 Disposition: Home, Self-Care 01 Clinical Impression: Abdominal pain in male Nausea & vomiting Qualifiers: Vomiting type: unspecified Vomiting Intractability: non-intractable Qualified Code(s): R11.2 - Nausea with vomiting, unspecified - Discharge Information Instructions: Nausea and Vomiting, Adult, [id number], Abdominal Pain, Adult, [id number] Forms: ED Department Discharge Additional Instructions: Make sure to keep your appointment today. Return for any worsening symptoms. As before, your lipase and amylase levels are within normal limits.
[2016-12-04 07:42] VITALS: BP 135/79
== END 2016-12-04 08:24 | disposition home or self-care (01) ==
LOC: DL.ED 06:14
DX: R10.9 Unspecified abdominal pain (principal); R11.2 Nausea with vomiting, unspecified; F41.9 Anxiety disorder, unspecified; F32.9 Major depressive disorder, single episode, unspecified; M54.9 Dorsalgia, unspecified; G89.29 Other chronic pain; Z79.899 Other long term (current) drug therapy; Z91.048 Other nonmedicinal substance allergy status; F17.210 Nicotine dependence, cigarettes, uncomplicated; F12.980 Cannabis use, unspecified with anxiety disorder
CPT/HCPCS: 36415; 80053; 82150; 83690; 85025; 96361; 96374; 96375; 99284; J1170; J1200; J2405; J7030

== ENCOUNTER 2016-12-23 06:02 | Emergency (ER) | payer MEDICAID, SELFPAY | END 2016-12-23 06:03 | LOC: DL.ED 06:02 | DX: Z53.21 Procedure and treatment not carried out due to patient leaving prior to being seen by health care provider (principal) ==

== ENCOUNTER 2016-12-23 06:57 | Emergency (ER) | payer MEDICAID ==
[2016-12-23 07:11] VITALS: BP 102/65
--- NOTE | 2016-12-23 07:31 | EDM.PDOC ---
ED HPI GENERAL MEDICAL PROBLEM - General Stated Complaint: PANCREATITUS Time Seen by Provider: 12/23/16 07:08 Source of Information: Reports: Patient History Limitations: Reports: No Limitations - History of Present Illness INITIAL COMMENTS - FREE TEXT/NARRATIVE: 31 yo male presents with c/o abdominal pain. Was here earlier but states that " I wanted to return when another provider came so I waited in my car until change of shift." Has a history of pancreatitis and states " I went to [facility] and they told me that I have a rare form of pancreatitis that my enzymes are never elevated". Patient rolling around in bed and moaning, states that he has had multiple episodes of vomiting. States that he has an appointment in [place] on January 02, 2017 and that he will see a specialist. States that he comes to the hospital to "get relief" because he does not want to run out of his pain medication prescribed by Dr. Gordon. He is being seen weekly at Dr. Gordon's office and given 1 weeks worth of percocet 10/325 according to drug monitoring program. States that he took his percocet last night with relief but this morning he was back in pain again and could not keep medication down. 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) Right Upper Abdomen Pain Score (Numeric/FACES): 10 - Related Data Allergies Allergy/AdvReac Type Severity Reaction Status Date / Time cats Allergy Itching Uncoded 12/04/16 06:24 Home Meds: Home Meds Omeprazole [Prilosec] 20 mg PO BID 10/27/13 [History] Amylase/Lipase/Protease [Parag LUCIA 24,000 Unit] 15 cap PO TIDMEALS 02/23/14 [ History] Escitalopram [Lexapro] 20 mg PO DAILY 09/02/14 [History] Ondansetron [Zofran ODT] 4 mg PO Q4H PRN #20 tab.dis 03/15/15 [Rx] oxyCODONE HCl/Acetaminophen [Endocet 10-325 mg Tablet] 1 each PO Q6HR PRN #32 tablet 04/14/15 [Rx] Pregabalin [Lyrica] 75 mg PO TID 03/07/16 [History] Past Medical History - Past Health History Medical/Surgical History: Denies Medical/Surgical History HEENT History: Reports: Impaired Vision Other HEENT History: wears glasses Cardiovascular History: Reports: None Respiratory History: Reports: None Gastrointestinal History: Reports: Pancreatitis Other Gastrointestinal History: Stents placed in pancrease, sphinctor of bessy surgery . 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 Stone was removed last summer in December-Jan. Hematologic History: Reports: None Immunologic History: Reports: None Oncologic (Cancer) History: Reports: None Other Dermatologic History: allergic to cats - Infectious Disease History Infectious Disease History: Reports: None - Past Surgical History Head Surgeries/Procedures: Reports: None GI Surgical History: Reports: Cholecystectomy, Colostomy, EGD Social & Family History - Family History Family Medical History: Unobtainable Cardiac: Reports: CAD, Stent Respiratory: Reports: None GI: Reports: None Neurological: Reports: CVA Oncologic: Reports: Breast, Other (See Below) Other Oncologic Family History: STOMACH - Tobacco Use Smoking Status *Q: Current Every Day Smoker Years of Tobacco use: 18 Packs/Tins Daily: 0.2 Used Tobacco, but Quit: No Month Tobacco Last Used: 2 weeks Second Hand Smoke Exposure: No - Caffeine Use Caffeine Use: Reports: None - Alcohol Use Days Per Week of Alcohol Use: 0 - Recreational Drug Use Recreational Drug Use: Yes Drug Use in Last 12 Months: Yes Recreational Drug Type: Reports: Marijuana/Hashish Recreational Drug Use Frequency: Weekly Recreational Drug Last Use: 12/01/2016 - Living Situation & Occupation Living situation: Reports: Single, Alone Occupation: Unemployed ED ROS GENERAL - Review of Systems Review Of Systems: ROS reveals no pertinent complaints other than HPI. ED EXAM, GI/ABD - Physical Exam Exam: See Below Exam Limited By: No Limitations General Appearance: Alert, WD/WN, No Apparent Distress, Anxious Respiratory/Chest: No Respiratory Distress, Lungs Clear, Normal Breath Sounds, No Accessory Muscle Use, Chest Non-Tender Cardiovascular: Normal Peripheral Pulses, Regular Rate, Rhythm, No Edema, No Gallop, No JVD, No Murmur, No Rub GI/Abdominal: Normal Bowel Sounds, Soft, No Organomegaly, No Distention, No Abnormal Bruit, No Mass, Tenderness Neurological: Alert, Oriented, CN II-XII Intact, Normal Cognition, Normal Gait, Normal Reflexes, No Motor/Sensory Deficits Skin Exam: Warm, Dry, Intact, Normal Color, No Rash Course - Vital Signs Last Recorded V/S: Last Vital Signs Temp 97.7 F 12/23/16 07:08 Pulse 67 12/23/16 07:08 Resp 20 12/23/16 07:08 BP 102/65 12/23/16 07:08 Pulse Ox 99 12/23/16 07:08 - Orders/Labs/Meds Orders: Active Orders 24 hr Category Date Time Status Abdomen Pelvis w Cont [CT] Urgent Exams 12/23/16 08:09 Taken LIPID PANEL [REF] Stat Lab 12/23/16 07:12 Received Sodium Chloride 0.9% [Saline Flush] Med 12/23/16 08:09 Active 10 ml FLUSH ASDIRECTED PRN Saline Lock Insert [OM.PC] Stat Oth 12/23/16 08:08 Ordered Medication Orders Sodium Chloride (Saline Flush) 10 ml FLUSH ASDIRECTED PRN PRN Reason: Keep Vein Open Last Admin: 12/23/16 08:17 Dose: 10 ml Labs: Laboratory Tests 12/23/16 12/23/16 Range/Units 07:12 07:12 WBC 17.3 H (5.0-10.0) 10^3/uL RBC 5.18 (4.6-6.2) 10^6/uL Hgb 15.9 (14.0-18.0) g/dL Hct 47.2 (40.0-54.0) % MCV 91.1 (80-100) fL MCH 30.7 (27.0-34.0) pg MCHC 33.7 (33.0-35.0) g/dL Plt Count 221 (150-450) 10^3/uL Neut % (Auto) 74.3 (42.2-75.2) % Lymph % (Auto) 16.2 L (20.5-50.1) % [place] % (Auto) 7.9 (2-8) % Eos % (Auto) 1.2 (1.0-3.0) % Baso % (Auto) 0.4 (0.0-1.0) % Sodium 143 (135-145) mmol/L Potassium 3.9 (3.6-5.0) mmol/L Chloride 106 (101-111) mmol/L Carbon Dioxide 23.0 (21.0-31.0) mmol/L Anion Gap 17.9 BUN 13 (7-18) mg/dL Creatinine 0.9 (0.6-1.3) mg/dL Est Cr Clr Drug Dosing 138.27 mL/min Estimated GFR (MDRD) > 60 Glucose 115 H (74-105) mg/dL Calcium 9.8 (8.4-10.2) mg/dl Amylase 43 (28-100) U/L Lipase 22 (22-51) U/L Meds: Medications Generic Name Dose Route Start Last Admin Trade Name Freq PRN Reason Stop Dose Admin Sodium Chloride 10 ml 12/23/16 08:09 12/23/16 08:17 Saline Flush FLUSH 10 ml ASDIRECTED PRN Administration Keep Vein Open Discontinued Medications Generic Name Dose Route Start Last Admin Trade Name Freq PRN Reason Stop Dose Admin Hydromorphone HCl 1 mg 12/23/16 08:58 12/23/16 09:05 Dilaudid IVPUSH 12/23/16 08:59 1 mg ONETIME ONE Administration Hydromorphone HCl 1 mg 12/23/16 10:09 12/23/16 10:18 Dilaudid IVPUSH 12/23/16 10:10 1 mg ONETIME ONE Administration Iopamidol 100 ml 12/23/16 08:46 12/23/16 08:46 Isovue-300 (61%) IVPUSH 12/23/16 08:47 100 ml ONETIME ONE Administration Ketorolac Tromethamine 30 mg 12/23/16 08:27 12/23/16 08:53 Toradol IVPUSH 12/23/16 08:28 30 mg ONETIME ONE Administration Lorazepam 1 mg 12/23/16 08:09 12/23/16 08:17 Ativan IVPUSH 12/23/16 08:10 1 mg ONETIME ONE Administration Ondansetron HCl 8 mg 12/23/16 07:34 12/23/16 07:39 Zofran Odt PO 12/23/16 07:35 8 mg ONETIME ONE Administration Ondansetron HCl 4 mg 12/23/16 08:58 12/23/16 09:04 Zofran IV 12/23/16 08:59 4 mg ONETIME ONE Administration Oxycodone/Acetaminophen 2 tab 12/23/16 07:34 12/23/16 07:39 Percocet 325-5 Mg PO 12/23/16 07:35 2 tab ONETIME ONE Administration Oxycodone/Acetaminophen 2 tab 12/23/16 09:48 12/23/16 10:48 Percocet 325-5 Mg PO 12/23/16 09:49 Not Given ONETIME ONE Promethazine HCl 25 mg 12/23/16 10:09 12/23/16 10:17 Phenergan IM 12/23/16 10:10 25 mg ONETIME ONE Administration - Re-Assessments/Exams Free Text/Narrative Re-Assessment/Exam: 12/23/16 07:[address] imaging as " it is not gonna show anything and I dont need the radiation". All labs WNL. Pt continues to flail around in bed, however after medication given, flailing has decreased. 12/23/16 08:[address] agrees to [address] imaging. States that it is hard to lay flat. 12/23/16 08:28 Pt removed IV prior to Ct imaging. RN at bedside to replace. pt found to be forcing self to vomit,however no evidence of medication noted in vomitus. 12/23/16 09:18 CT revealed findings consisitent with mild pancreatitis. Will encourage patient to continue using pain medication and stay hydrated. 12/23/16 10:10 Pt states pain has decreased and but is strting to increase slowly. 12/23/16 10:36 Patient more relaxed, no vomiting noted. States pain has decreased significantly. no longer flailing in bed. Sitting upright at end of stretcher. Encouraged patient to keep appointment with Specialist, DR. Jacob in [place] on December and to see if they will fax paperwork tomorrow from his previous visits to help with management at this facility of his case. Patient agrees with plan and verbalizes understanding Departure - Departure Time of Disposition: 10:38 Disposition: Home, Self-Care 01 Condition: Good Clinical Impression: Pancreatitis Qualifiers: Chronicity: chronic Pancreatitis type: idiopathic Qualified Code(s): K86.1 - Other chronic pancreatitis - Discharge Information Instructions: Nausea and Vomiting, Adult, [id number], Acute Pancreatitis Forms: ED Department Discharge Additional Instructions: Please keep your appointment with Dr. Jacob. TAke your pain medication as directed. Drink fluids to stay hydrated. Stay away from foods that may cause flare up. Return for any worsening symptoms. - My Orders Last 24 Hours: My Active Orders 12/23/16 07:12 LIPID PANEL [REF] Stat 12/23/16 08:08 Saline Lock Insert [OM.PC] Stat 12/23/16 08:09 Abdomen Pelvis w Cont [CT] Urgent Sodium Chloride 0.9% [Saline Flush] 10 ml FLUSH ASDIRECTED PRN - Assessment/Plan Last 24 Hours: My Active Orders 12/23/16 07:12 LIPID PANEL [REF] Stat 12/23/16 08:08 Saline Lock Insert [OM.PC] Stat 12/23/16 08:09 Abdomen Pelvis w Cont [CT] Urgent Sodium Chloride 0.9% [Saline Flush] 10 ml FLUSH ASDIRECTED PRN
[2016-12-23] MEDS ORDERED: Ondansetron 4 MG Tab.DIS PO ONE (07:34)
[2016-12-23] MEDS ORDERED: Acetaminophen/oxyCODONE 325-5 MG Tab PO ONE ×2 (07:34→09:48)
[2016-12-23 07:38] LABS: CHLORIDE,CL 106 mmol/L (101-111); SODIUM,NA 143 mmol/L (135-145)
[2016-12-23] MEDS ORDERED: Sodium Chloride 0.9% 10 ML Syringe FLUSH PRN (08:09)
[2016-12-23] MEDS ORDERED: LORazepam 2 MG/ML Syringe IVPUSH ONE (08:09)
[2016-12-23] MEDS ORDERED: Ketorolac 30 MG/ML SDV IVPUSH ONE (08:27)
[2016-12-23] MEDS ORDERED: Iopamidol 612 MG/ML 100 ML Bottle IVPUSH ONE (08:46)
[2016-12-23] MEDS ORDERED: Ondansetron 4 MG/2 ML SDV IV ONE (08:58)
[2016-12-23] MEDS ORDERED: HYDROmorphone 1 MG/ML Syringe IVPUSH ONE ×2 (08:58→10:09)
[2016-12-23] MEDS ORDERED: Promethazine 25 MG/ML SDV IM ONE (10:09)
== END 2016-12-23 11:05 | disposition home or self-care (01) ==
LOC: DL.ED 06:57
DX: K86.1 Other chronic pancreatitis (principal); H54.7 Unspecified visual loss; F32.9 Major depressive disorder, single episode, unspecified; F17.210 Nicotine dependence, cigarettes, uncomplicated; Z90.49 Acquired absence of other specified parts of digestive tract; Z79.899 Other long term (current) drug therapy
CPT/HCPCS: 36415; 74177; 80048; 80061; 82150; 83690; 85025; 96372; 96374; 96375; 96376; 99284; A9270; J1170; J1885; J2060; J2405; J2550; J7050; Q9967

== ENCOUNTER 2016-12-25 07:33 | Emergency (ER) | payer MEDICAID ==
[2016-12-25] MEDS ORDERED: Ondansetron 4 MG/2 ML SDV IV ONE (07:59)
[2016-12-25] MEDS ORDERED: Ketorolac 30 MG/ML SDV IVPUSH ONE (07:59)
[2016-12-25] MEDS ORDERED: Lactated Ringers 1,000 ML IV ONE (07:59)
--- NOTE | 2016-12-25 08:11 | EDM.PDOC ---
ED HPI GENERAL MEDICAL PROBLEM - General Chief Complaint: Abdominal Pain Stated Complaint: [id number] Pancreas Time Seen by Provider: 12/25/16 07:54 Source of Information: Reports: Patient History Limitations: Reports: No Limitations - History of Present Illness INITIAL COMMENTS - FREE TEXT/NARRATIVE: This 31 yo male patient reports to the ED with increased abdominal pain. The patient reports his pain started at 0500 this morning. The patient attempted to take Zofran and Hydrocodone, but threw up about 10 minutes after taking the medications. The patient reports he has an appointment at [facility] on for his pancreatitis. The patient reports his car broke down last month when he was supposed to have an appointment and was rescheduled for the date listed above. The patient reports he did see Dr. Albarran after missing his appointment , but Dr. Albarran determined the [facility] would be the best place for continued evaluation and further treatment. The patient was seen in this ED 2 times on 12/23/16 for similar symptoms. The patient reports his oral home medications worked yesterday, but he could not get his medications down today for symptom management. 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) Right Upper Abdomen Pain Score (Numeric/FACES): 6 - Related Data Allergies Allergy/AdvReac Type Severity Reaction Status Date / Time cats Allergy Itching Uncoded 12/25/16 07:43 Home Meds: Home Meds Omeprazole [Prilosec] 20 mg PO BID 10/27/13 [History] Amylase/Lipase/Protease [Parag LUCIA 24,000 Unit] 15 cap PO TIDMEALS 02/23/14 [ History] Escitalopram [Lexapro] 20 mg PO DAILY 09/02/14 [History] Ondansetron [Zofran ODT] 4 mg PO Q4H PRN #20 tab.dis 03/15/15 [Rx] oxyCODONE HCl/Acetaminophen [Endocet 10-325 mg Tablet] 1 each PO Q6HR PRN #32 tablet 04/14/15 [Rx] Pregabalin [Lyrica] 75 mg PO TID 03/07/16 [History] Past Medical History - Past Health History Medical/Surgical History: Denies Medical/Surgical History HEENT History: Reports: Impaired Vision Other HEENT History: wears glasses Cardiovascular History: Reports: None Respiratory History: Reports: None Gastrointestinal History: Reports: Pancreatitis Other Gastrointestinal History: Stents placed in pancrease, sphinctor of bessy surgery . 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 Stone was removed last summer in December-Jan. Hematologic History: Reports: None Immunologic History: Reports: None Oncologic (Cancer) History: Reports: None Other Dermatologic History: allergic to cats - Infectious Disease History Infectious Disease History: Reports: None - Past Surgical History Head Surgeries/Procedures: Reports: None GI Surgical History: Reports: Cholecystectomy, Colostomy, EGD Social & Family History - Family History Family Medical History: Unobtainable Cardiac: Reports: CAD, Stent Respiratory: Reports: None GI: Reports: None Neurological: Reports: CVA Oncologic: Reports: Breast, Other (See Below) Other Oncologic Family History: STOMACH - Tobacco Use Smoking Status *Q: Current Every Day Smoker Years of Tobacco use: 18 Packs/Tins Daily: 0.2 Used Tobacco, but Quit: No Month Tobacco Last Used: 2 weeks Second Hand Smoke Exposure: No - Caffeine Use Caffeine Use: Reports: None - Alcohol Use Days Per Week of Alcohol Use: 0 - Recreational Drug Use Recreational Drug Use: Yes Drug Use in Last 12 Months: Yes Recreational Drug Type: Reports: Marijuana/Hashish Recreational Drug Use Frequency: Weekly Recreational Drug Last Use: 12/20/16 - Living Situation & Occupation Living situation: Reports: Single, Alone Occupation: Unemployed ED ROS GENERAL - Review of Systems Review Of Systems: ROS reveals no pertinent complaints other than HPI. ED EXAM, GI/ABD - Physical Exam Exam: See Below Exam Limited By: No Limitations General Appearance: Alert, WD/WN, Moderate Distress Eyes: Bilateral: Normal Appearance, EOMI Ears: Normal External Exam, Normal Canal, Hearing Grossly Normal, Normal TMs Nose: Normal Inspection, Normal Mucosa, No Blood Throat/Mouth: Normal Inspection, Normal Lips, Normal Teeth, Normal Gums, Normal Oropharynx, Normal Voice, No Airway Compromise Head: Atraumatic, Normocephalic Neck: Normal Inspection, Supple, Non-Tender, Full Range of Motion Respiratory/Chest: No Respiratory Distress, Lungs Clear, Normal Breath Sounds, No Accessory Muscle Use, Chest Non-Tender Cardiovascular: Normal Peripheral Pulses, Regular Rate, Rhythm, No Edema, No Gallop, No JVD, No Murmur, No Rub GI/Abdominal: Normal Bowel Sounds, Tenderness (generalized), Guarding (upper abdomen) (Male) Exam: Deferred Rectal (Males) Exam: Deferred Back Exam: Normal Inspection, Full Range of Motion, NT Extremities: Normal Inspection, Normal Range of Motion, Non-Tender, Normal Capillary Refill, No Pedal Edema Neurological: Alert, Oriented, CN II-XII Intact, Normal Cognition, Normal Gait, Normal Reflexes, No Motor/Sensory Deficits Psychiatric: Normal Affect, Normal Mood Skin Exam: Warm, Intact, Normal Color, No Rash, Diaphoretic Lymphatic: No Adenopathy Course - Vital Signs Last Recorded V/S: Last Vital Signs Temp 36.2 C 12/25/16 07:49 Pulse 92 12/25/16 07:49 Resp 20 12/25/16 07:49 BP 151/105 H 12/25/16 07:49 Pulse Ox 99 12/25/16 07:49 - Orders/Labs/Meds Meds: Medications Discontinued Medications Generic Name Dose Route Start Last Admin Trade Name Aminah PRN Reason Stop Dose Admin Hydromorphone HCl 1 mg 12/25/16 08:30 12/25/16 08:33 Dilaudid IVPUSH 12/25/16 08:31 1 mg ONETIME ONE Administration Hydromorphone HCl 0.5 mg 12/25/16 08:58 Dilaudid IVPUSH 12/25/16 08:59 ONETIME ONE Lactated Ringer's 1,000 mls @ 999 mls/hr 12/25/16 07:59 12/25/16 08:11 Ringers, Lactated IV 12/25/16 08:59 999 mls/hr .BOLUS ONE Administration Ketorolac Tromethamine 30 mg 12/25/16 07:59 12/25/16 08:12 Toradol IVPUSH 12/25/16 08:00 30 mg ONETIME ONE Administration Ondansetron HCl 4 mg 12/25/16 07:59 12/25/16 08:14 Zofran IV 12/25/16 08:00 4 mg ONETIME ONE Administration Departure - Departure Time of Disposition: 09:05 Disposition: Home, Self-Care 01 Condition: Fair Clinical Impression: Pancreatitis, chronic Qualifiers: Pancreatitis type: other Qualified Code(s): K86.1 - Other chronic pancreatitis - Discharge Information Instructions: Acute Pancreatitis, [id number] Forms: ED Department Discharge Care Plan Goals: The patient was advised of the examination results during the visit. The patient was given IV fluids, Zofran and Dilaudid while in the ED. The patient was encouraged to follow-up with his primary care facility and specialist for continued evaluation and management. If the patient has any additional symptoms or concerns, the patient should follow-up with his primary care facility or return to the emergency department.
[2016-12-25] MEDS ORDERED: HYDROmorphone 1 MG/ML Syringe IVPUSH ONE ×2 (08:30→08:58)
[2016-12-25 09:20] VITALS: BP 120/63
== END 2016-12-25 09:14 | disposition home or self-care (01) ==
LOC: DL.ED 07:33
DX: K86.1 Other chronic pancreatitis (principal); H54.7 Unspecified visual loss; F41.9 Anxiety disorder, unspecified; F32.9 Major depressive disorder, single episode, unspecified; F17.210 Nicotine dependence, cigarettes, uncomplicated; Z90.49 Acquired absence of other specified parts of digestive tract; Z91.048 Other nonmedicinal substance allergy status; Z79.899 Other long term (current) drug therapy
CPT/HCPCS: 96361; 96374; 96375; 99283; J1170; J1885; J2405; J7120

== ENCOUNTER 2017-01-06 13:03 | Emergency (ER) | payer MEDICAID ==
[2017-01-06 13:46] VITALS: BP 124/78
[2017-01-06] MEDS ORDERED: Sodium Chloride 0.9% 1,000 ML IV ONE (13:58)
[2017-01-06] MEDS ORDERED: Ketorolac 30 MG/ML SDV IVPUSH ONE (13:58)
[2017-01-06] MEDS ORDERED: Ondansetron 8 MG in Sodium Chloride 0.9% 50 ML IV ONE (13:58)
--- NOTE | 2017-01-06 14:02 | EDM.PDOC ---
ED HPI GENERAL MEDICAL PROBLEM - General Chief Complaint: Abdominal Pain Stated Complaint: VOMITING/ABDOMINAL PAIN Time Seen by Provider: 01/06/17 13:59 Source of Information: Reports: Patient History Limitations: Reports: No Limitations - History of Present Illness INITIAL COMMENTS - FREE TEXT/NARRATIVE: 31 yo white male w/ PMHx. Chronic pancreatitis c/o of N&V w/ epigastric pain since 8AM Onset: Today Onset Date: 01/06/17 Onset Time: 08:00 Duration: Constant Location: Reports: Abdomen Quality: Reports: Ache Severity: Moderate Right Upper Abdominal Pain Score (Numeric/FACES): 9 - Related Data Allergies Allergy/AdvReac Type Severity Reaction Status Date / Time cats Allergy Itching Uncoded 12/25/16 07:43 Home Meds: Home Meds Omeprazole [Prilosec] 20 mg PO BID 10/27/13 [History] Amylase/Lipase/Protease [Parag DR 24,000 Unit] 15 cap PO TIDMEALS 02/23/14 [ History] Escitalopram [Lexapro] 20 mg PO DAILY 09/02/14 [History] Ondansetron [Zofran ODT] 4 mg PO Q4H PRN #20 tab.dis 03/15/15 [Rx] oxyCODONE HCl/Acetaminophen [Endocet 10-325 mg Tablet] 1 each PO Q6HR PRN #32 tablet 04/14/15 [Rx] Pregabalin [Lyrica] 75 mg PO TID 03/07/16 [History] Past Medical History - Past Health History Medical/Surgical History: Denies Medical/Surgical History HEENT History: Reports: Impaired Vision Other HEENT History: wears glasses Cardiovascular History: Reports: None Respiratory History: Reports: None Gastrointestinal History: Reports: Pancreatitis Other Gastrointestinal History: Stents placed in pancrease, sphinctor of bessy surgery . 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 Stone was removed last summer in December-Jan. Hematologic History: Reports: None Immunologic History: Reports: None Oncologic (Cancer) History: Reports: None Other Dermatologic History: allergic to cats - Infectious Disease History Infectious Disease History: Reports: None - Past Surgical History Head Surgeries/Procedures: Reports: None GI Surgical History: Reports: Cholecystectomy, Colostomy, EGD Social & Family History - Family History Family Medical History: Unobtainable Cardiac: Reports: CAD, Stent Respiratory: Reports: None GI: Reports: None Neurological: Reports: CVA Oncologic: Reports: Breast, Other (See Below) Other Oncologic Family History: STOMACH - Tobacco Use Smoking Status *Q: Current Every Day Smoker Years of Tobacco use: 18 Packs/Tins Daily: 0.2 Used Tobacco, but Quit: No Month Tobacco Last Used: 2 weeks Second Hand Smoke Exposure: No - Caffeine Use Caffeine Use: Reports: None - Alcohol Use Days Per Week of Alcohol Use: 0 - Recreational Drug Use Recreational Drug Use: Yes Drug Use in Last 12 Months: Yes Recreational Drug Type: Reports: Marijuana/Hashish Recreational Drug Use Frequency: Weekly Recreational Drug Last Use: 12/20/16 - Living Situation & Occupation Living situation: Reports: Single, Alone Occupation: Unemployed ED ROS GENERAL - Review of Systems Review Of Systems: See Below Constitutional: Reports: No Symptoms HEENT: Reports: No Symptoms Respiratory: Reports: No Symptoms Cardiovascular: Reports: No Symptoms Endocrine: Reports: No Symptoms GI/Abdominal: Reports: Abdominal Pain (epigastric area) : Reports: No Symptoms Musculoskeletal: Reports: No Symptoms Skin: Reports: No Symptoms Neurological: Reports: No Symptoms Psychiatric: Reports: No Symptoms Hematologic/Lymphatic: Reports: No Symptoms Immunologic: Reports: No Symptoms ED EXAM, GI/ABD - Physical Exam Exam: See Below Exam Limited By: No Limitations General Appearance: Alert, Obese Eyes: Bilateral: EOMI Ears: Normal External Exam Nose: Normal Inspection Throat/Mouth: Normal Inspection Head: Atraumatic Neck: Normal Inspection Respiratory/Chest: No Respiratory Distress, Lungs Clear Cardiovascular: Normal Peripheral Pulses GI/Abdominal Exam: Tender (epigastric area) Back Exam: Normal Inspection Extremities: Normal Inspection Neurological: Alert, Oriented, CN II-XII Intact Psychiatric: Normal Affect Skin Exam: Warm, Dry, Intact Lymphatic: No Adenopathy Course - Vital Signs Last Recorded V/S: Last Vital Signs Temp 35.9 C 01/06/17 13:31 Pulse 112 H 01/06/17 13:31 Resp 16 01/06/17 13:31 BP 124/78 01/06/17 13:31 Pulse Ox 100 01/06/17 13:31 - Orders/Labs/Meds Orders: Active Orders 24 hr Category Date Time Status Abdomen Pelvis w Cont [CT] Urgent Exams 01/06/17 15:21 Ordered HYDROmorphone [Dilaudid] Med 01/06/17 15:38 Once 1 mg IVPUSH ONETIME ONE Labs: Laboratory Tests 01/06/17 01/06/17 01/06/17 Range/Units 14:13 14:13 14:25 WBC 13.1 H (5.0-10.0) 10^3/uL RBC 4.71 (4.6-6.2) 10^6/uL Hgb 14.4 (14.0-18.0) g/dL Hct 43.7 (40.0-54.0) % MCV 92.8 (80-100) fL MCH 30.6 (27.0-34.0) pg MCHC 33.0 (33.0-35.0) g/dL Plt Count 200 (150-450) 10^3/uL Neut % (Auto) 72.7 (42.2-75.2) % Lymph % (Auto) 17.1 L (20.5-50.1) % [place] % (Auto) 7.0 (2-8) % Eos % (Auto) 2.7 (1.0-3.0) % Baso % (Auto) 0.5 (0.0-1.0) % Sodium 144 (135-145) mmol/L Potassium 3.7 (3.6-5.0) mmol/L Chloride 108 (101-111) mmol/L Carbon Dioxide 22.0 (21.0-31.0) mmol/L Anion Gap 17.7 BUN 9 (7-18) mg/dL Creatinine 0.9 (0.6-1.3) mg/dL Est Cr Clr Drug Dosing TNP Estimated GFR (MDRD) > 60 BUN/Creatinine Ratio 10.00 Glucose 106 H (74-105) mg/dL Calcium 9.2 (8.4-10.2) mg/dl Total Bilirubin 0.9 (0.2-1.0) mg/dL AST 17 (10-42) IU/L ALT 14 (10-60) IU/L Alkaline Phosphatase 57 (42-121) IU/L Total Protein 7.2 (6.7-8.2) g/dl Albumin 4.6 (3.2-5.5) g/dl Globulin 2.6 Albumin/Globulin Ratio 1.77 Amylase 43 (28-100) U/L Lipase 25 (22-51) U/L Urine Color Nyla (YELLOW) Urine Appearance Clear (CLEAR) Urine pH 6.0 (5.0-9.0) Ur Specific [place] 1.020 (1.005-1.030) Urine Protein 30 H (NEGATIVE) Urine Glucose (UA) Negative (NEGATIVE) Urine Ketones Trace H (NEGATIVE) Urine Occult Blood Negative (NEGATIVE) Urine Nitrite Negative (NEGATIVE) Urine Bilirubin Moderate H (NEGATIVE) Urine Urobilinogen 0.2 (0.2-1.0) mg/dL Ur Leukocyte Esterase Negative (NEGATIVE) Urine RBC 0-5 /HPF Urine WBC 5-10 H (0-5/HPF) /HPF Ur Epithelial Cells Few /HPF Urine Bacteria Moderate H (0-FEW/HPF) /HPF Hyaline Casts Many H /LPF Urine Mucus Many H /LPF Urine Opiates Screen (NEGATIVE) Ur Oxycodone Screen (NEGATIVE) Urine Methadone Screen (NEGATIVE) Ur Barbiturates Screen (NEGATIVE) U Tricyclic Antidepress (NEGATIVE) Ur Phencyclidine Scrn (NEGATIVE) Ur Amphetamine Screen (NEGATIVE) U Methamphetamines Scrn (NEGATIVE) Urine MDMA Screen (NEGATIVE) U Benzodiazepines Scrn (NEGATIVE) Urine Cocaine Screen (NEGATIVE) U Marijuana (THC) Screen (NEGATIVE) 01/06/17 Range/Units 14:25 WBC (5.0-10.0) 10^3/uL RBC (4.6-6.2) 10^6/uL Hgb (14.0-18.0) g/dL Hct (40.0-54.0) % MCV (80-100) fL MCH (27.0-34.0) pg MCHC (33.0-35.0) g/dL Plt Count (150-450) 10^3/uL Neut % (Auto) (42.2-75.2) % Lymph % (Auto) (20.5-50.1) % [place] % (Auto) (2-8) % Eos % (Auto) (1.0-3.0) % Baso % (Auto) (0.0-1.0) % Sodium (135-145) mmol/L Potassium (3.6-5.0) mmol/L Chloride (101-111) mmol/L Carbon Dioxide (21.0-31.0) mmol/L Anion Gap BUN (7-18) mg/dL Creatinine (0.6-1.3) mg/dL Est Cr Clr Drug Dosing Estimated GFR (MDRD) BUN/Creatinine Ratio Glucose (74-105) mg/dL Calcium (8.4-10.2) mg/dl Total Bilirubin (0.2-1.0) mg/dL AST (10-42) IU/L ALT (10-60) IU/L Alkaline Phosphatase (42-121) IU/L Total Protein (6.7-8.2) g/dl Albumin (3.2-5.5) g/dl Globulin Albumin/Globulin Ratio Amylase (28-100) U/L Lipase (22-51) U/L Urine Color (YELLOW) Urine Appearance (CLEAR) Urine pH (5.0-9.0) Ur Specific [place] (1.005-1.030) Urine Protein (NEGATIVE) Urine Glucose (UA) (NEGATIVE) Urine Ketones (NEGATIVE) Urine Occult Blood (NEGATIVE) Urine Nitrite (NEGATIVE) Urine Bilirubin (NEGATIVE) Urine Urobilinogen (0.2-1.0) mg/dL Ur Leukocyte Esterase (NEGATIVE) Urine RBC /HPF Urine WBC (0-5/HPF) /HPF Ur Epithelial Cells /HPF Urine Bacteria (0-FEW/HPF) /HPF Hyaline Casts /LPF Urine Mucus /LPF Urine Opiates Screen Negative (NEGATIVE) Ur Oxycodone Screen Positive H (NEGATIVE) Urine Methadone Screen Negative (NEGATIVE) Ur Barbiturates Screen Negative (NEGATIVE) U Tricyclic Antidepress Negative (NEGATIVE) Ur Phencyclidine Scrn Negative (NEGATIVE) Ur Amphetamine Screen Negative (NEGATIVE) U Methamphetamines Scrn Negative (NEGATIVE) Urine MDMA Screen Negative (NEGATIVE) U Benzodiazepines Scrn Negative (NEGATIVE) Urine Cocaine Screen Negative (NEGATIVE) U Marijuana (THC) Screen Positive H (NEGATIVE) Meds: Medications Discontinued Medications Generic Name Dose Route Start Last Admin Trade Name Freq PRN Reason Stop Dose Admin Ondansetron HCl 8 mg/ Sodium 54 mls @ 200 mls/hr 01/06/17 13:58 01/06/17 14: 18 Chloride IV 01/06/17 14:14 200 mls/hr ONETIME ONE Administration Sodium Chloride 1,000 mls @ 999 mls/hr 01/06/17 13:58 01/06/17 14:15 Normal Saline IV 01/06/17 14:58 999 mls/hr .BOLUS ONE Administration Iopamidol 100 ml 01/06/17 15:21 Isovue-300 (61%) IVPUSH 01/06/17 15:22 ONETIME ONE Ketorolac Tromethamine 30 mg 01/06/17 13:58 01/06/17 14:16 Toradol IVPUSH 01/06/17 13:59 30 mg ONETIME ONE Administration - Re-Assessments/Exams Free Text/Narrative Re-Assessment/Exam: 01/06/17 15:38 Patient labs reviewed and due to normal Amylase and Lipase Abdomen & Pelvis CT ordered, Patient refused. Case discussed with patient PCP Dr. Vogel. Patient agrees to accept 1mg Dilaudid IVP and then to contact his specialist Dr. Jacob @ [facility] Departure - Departure Time of Disposition: 15:41 Disposition: Home, Self-Care 01 Condition: Fair Clinical Impression: Chronic pancreatitis Qualifiers: Pancreatitis type: other Qualified Code(s): K86.1 - Other chronic pancreatitis - Discharge Information Forms: ED Department Discharge Additional Instructions: Contact Dr. Jacob @ [facility] Cont. medications as prescribed by your PCP - My Orders Last 24 Hours: My Active Orders 01/06/17 15:21 Abdomen Pelvis w Cont [CT] Urgent 01/06/17 15:38 HYDROmorphone [Dilaudid] 1 mg IVPUSH ONETIME ONE - Assessment/Plan Last 24 Hours: My Active Orders 01/06/17 15:21 Abdomen Pelvis w Cont [CT] Urgent 01/06/17 15:38 HYDROmorphone [Dilaudid] 1 mg IVPUSH ONETIME ONE
[2017-01-06 14:40] LABS: CHLORIDE,CL 108 mmol/L (101-111); SODIUM,NA 144 mmol/L (135-145)
[2017-01-06] MEDS ORDERED: Iopamidol 612 MG/ML 100 ML Bottle IVPUSH ONE (15:21)
[2017-01-06] MEDS ORDERED: HYDROmorphone 1 MG/ML Syringe IVPUSH ONE (15:38)
== END 2017-01-06 15:55 | disposition home or self-care (01) ==
LOC: DL.ED 13:03
DX: K86.1 Other chronic pancreatitis (principal); F41.9 Anxiety disorder, unspecified; F32.9 Major depressive disorder, single episode, unspecified; F17.210 Nicotine dependence, cigarettes, uncomplicated; Z90.49 Acquired absence of other specified parts of digestive tract; Z79.899 Other long term (current) drug therapy; Z91.048 Other nonmedicinal substance allergy status
CPT/HCPCS: 36415; 80053; 80305; 81001; 82150; 83690; 85025; 96361; 96365; 96375; 99284; J1170; J1885; J2405; J7030; J7050; Q9967

== ENCOUNTER 2017-02-05 12:59 | Emergency (ER) | payer BC, MEDICAID ==
[2017-02-05] MEDS ORDERED: Sodium Chloride 0.9% 1,000 ML IV ONE (14:40)
[2017-02-05] MEDS ORDERED: Ondansetron 4 MG/2 ML SDV IV ONE ×2 (14:40→16:47)
[2017-02-05] MEDS ORDERED: HYDROmorphone 1 MG/ML Syringe IVPUSH ONE ×2 (14:40→16:40)
--- NOTE | 2017-02-05 14:46 | EDM.PDOC ---
ED HPI GENERAL MEDICAL PROBLEM - General Chief Complaint: Abdominal Pain Stated Complaint: [id number] PANCREAS Time Seen by Provider: 02/05/17 14:40 Source of Information: Reports: Patient History Limitations: Reports: No Limitations - History of Present Illness INITIAL COMMENTS - FREE TEXT/NARRATIVE: 31 yo male presents with abdominal pain. History of pancreatitis. States that he is supposed to have an ERCP on Feb 12, 2017 to remove pancreatic stone in [place]. Pt groaning and flailing around in bed. States that he has been having pain , nausea and vomiting since 6 am and has not been able to keep his medication down. Take percocet daily for chronic pancreatitis. Pt irritable and yelling at staff currently. No emesis noted currently however pt is dry heaving. Onset: Today Onset Time: 06:00 Duration: Constant, Getting Worse Location: Reports: Abdomen Quality: Reports: Same as Previous Episode Severity: Severe Improves with: Reports: None Worsens with: Reports: None Associated Symptoms: Reports: Nausea/Vomiting Upper Abdomen Pain Score (Numeric/FACES): 8 - Related Data Allergies Allergy/AdvReac Type Severity Reaction Status Date / Time cats Allergy Itching Uncoded 12/25/16 07:43 Home Meds: Home Meds Omeprazole [Prilosec] 20 mg PO BID 10/27/13 [History] Amylase/Lipase/Protease [Parag DR 24,000 Unit] 15 cap PO TIDMEALS 02/23/14 [ History] Escitalopram [Lexapro] 20 mg PO DAILY 09/02/14 [History] Ondansetron [Zofran ODT] 4 mg PO Q4H PRN #20 tab.dis 03/15/15 [Rx] oxyCODONE HCl/Acetaminophen [Endocet 10-325 mg Tablet] 1 each PO Q6HR PRN #32 tablet 04/14/15 [Rx] Pregabalin [Lyrica] 75 mg PO TID 03/07/16 [History] Past Medical History - Past Health History Medical/Surgical History: Denies Medical/Surgical History HEENT History: Reports: Impaired Vision Other HEENT History: wears glasses Cardiovascular History: Reports: None Respiratory History: Reports: None Gastrointestinal History: Reports: Pancreatitis Other Gastrointestinal History: Stents placed in pancrease, sphinctor of bessy surgery . 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 Stone was removed last summer in December-Jan. Hematologic History: Reports: None Immunologic History: Reports: None Oncologic (Cancer) History: Reports: None Dermatologic History: Reports: Other (See Below) Other Dermatologic History: allergic to cats - Infectious Disease History Infectious Disease History: Reports: None - Past Surgical History Head Surgeries/Procedures: Reports: None GI Surgical History: Reports: Cholecystectomy, Colostomy, EGD Social & Family History - Family History Family Medical History: Unobtainable Cardiac: Reports: CAD, Stent Respiratory: Reports: None GI: Reports: None Neurological: Reports: CVA Oncologic: Reports: Breast, Other (See Below) Other Oncologic Family History: STOMACH - Tobacco Use Smoking Status *Q: Current Every Day Smoker Years of Tobacco use: 18 Packs/Tins Daily: 0.2 Used Tobacco, but Quit: No Month Tobacco Last Used: 2 weeks Second Hand Smoke Exposure: No - Caffeine Use Caffeine Use: Reports: None - Alcohol Use Days Per Week of Alcohol Use: 0 - Recreational Drug Use Recreational Drug Use: Yes Drug Use in Last 12 Months: Yes Recreational Drug Type: Reports: Marijuana/Hashish Recreational Drug Use Frequency: Weekly Recreational Drug Last Use: 12/20/16 - Living Situation & Occupation Living situation: Reports: Single, Alone Occupation: Unemployed ED ROS GENERAL - Review of Systems Review Of Systems: ROS reveals no pertinent complaints other than HPI. ED EXAM, GI/ABD - Physical Exam Exam: See Below Exam Limited By: No Limitations General Appearance: Alert, WD/WN, No Apparent Distress Eyes: Bilateral: Normal Appearance, EOMI Neck: Normal Inspection, Supple, Non-Tender, Full Range of Motion Respiratory/Chest: No Respiratory Distress, Lungs Clear, Normal Breath Sounds, No Accessory Muscle Use, Chest Non-Tender Cardiovascular: Normal Peripheral Pulses, Regular Rate, Rhythm, No Edema, No Gallop, No JVD, No Murmur, No Rub GI/Abdominal Exam: Normal Bowel Sounds, Soft, No Organomegaly, No Distention, No Abnormal Bruit, No Mass, Pelvis Stable, Tender (diffusely) Neurological: Alert, Oriented, CN II-XII Intact, Normal Cognition, Normal Gait, No Motor/Sensory Deficits Skin Exam: Warm, Dry, Intact, Normal Color, No Rash Lymphatic: No Adenopathy Course - Vital Signs Last Recorded V/S: Last Vital Signs Temp 97.2 F 02/05/17 13:54 Pulse 134 H 02/05/17 13:54 Resp 24 H 02/05/17 13:54 BP 104/78 02/05/17 13:54 Pulse Ox 98 02/05/17 13:54 - Orders/Labs/Meds Labs: Laboratory Tests 02/05/17 02/05/17 02/05/17 Range/Units 14:51 14:51 15:50 WBC 21.4 H (5.0-10.0) 10^3/uL RBC 5.08 (4.6-6.2) 10^6/uL Hgb 15.5 (14.0-18.0) g/dL Hct 46.0 (40.0-54.0) % MCV 90.6 (80-100) fL MCH 30.5 (27.0-34.0) pg MCHC 33.7 (33.0-35.0) g/dL Plt Count 240 (150-450) 10^3/uL Neut % (Auto) 89.1 H (42.2-75.2) % Lymph % (Auto) 7.5 L (20.5-50.1) % [place] % (Auto) 3.0 (2-8) % Eos % (Auto) 0.1 L (1.0-3.0) % Baso % (Auto) 0.3 (0.0-1.0) % Sodium 143 (135-145) mmol/L Potassium 4.1 (3.6-5.0) mmol/L Chloride 105 (101-111) mmol/L Carbon Dioxide 22.0 (21.0-31.0) mmol/L Anion Gap 20.1 BUN 12 (7-18) mg/dL Creatinine 1.0 (0.6-1.3) mg/dL Est Cr Clr Drug Dosing 120.96 mL/min Estimated GFR (MDRD) > 60 Glucose 127 H (74-105) mg/dL Calcium 10.0 (8.4-10.2) mg/dl Amylase 95 (28-100) U/L Lipase 59 H (22-51) U/L Urine Color Nyla (YELLOW) Urine Appearance Turbid (CLEAR) Urine pH 6.0 (5.0-9.0) Ur Specific [place] 1.025 (1.005-1.030) Urine Protein 30 H (NEGATIVE) Urine Glucose (UA) Negative (NEGATIVE) Urine Ketones Trace H (NEGATIVE) Urine Occult Blood Trace-intact H (NEGATIVE) Urine Nitrite Negative (NEGATIVE) Urine Bilirubin Small H (NEGATIVE) Urine Urobilinogen 0.2 (0.2-1.0) mg/dL Ur Leukocyte Esterase Negative (NEGATIVE) Urine RBC 5-10 H /HPF Urine WBC 0-5 (0-5/HPF) /HPF Ur Epithelial Cells Moderate H /HPF Amorphous Sediment Few (0/HPF) /HPF Urine Bacteria Not seen (0-FEW/HPF) /HPF Hyaline Casts Rare H /LPF Urine Mucus Many H /LPF Meds: Medications Discontinued Medications Generic Name Dose Route Start Last Admin Trade Name Freq PRN Reason Stop Dose Admin Hydrocodone Bitart/Acetaminophen 1 tab 02/05/17 16:07 02/05/17 16:11 [place] 325-10 Mg PO 02/05/17 16:08 1 tab ONETIME ONE Administration Hydromorphone HCl 1 mg 02/05/17 14:40 02/05/17 14:57 Dilaudid IVPUSH 02/05/17 14:41 1 mg ONETIME ONE Administration Hydromorphone HCl 1 mg 02/05/17 16:40 02/05/17 16:50 Dilaudid IVPUSH 02/05/17 16:41 1 mg ONETIME ONE Administration Sodium Chloride 1,000 mls @ 999 mls/hr 02/05/17 14:40 02/05/17 14:55 Normal Saline IV 02/05/17 15:40 999 mls/hr .BOLUS ONE Administration Ondansetron HCl 4 mg 02/05/17 14:40 02/05/17 14:55 Zofran IV 02/05/17 14:41 4 mg ONETIME ONE Administration Ondansetron HCl 4 mg 02/05/17 16:47 02/05/17 16:55 Zofran IV 02/05/17 16:48 4 mg ONETIME ONE Administration - Re-Assessments/Exams Free Text/Narrative Re-Assessment/Exam: 02/05/17 16:34 Pt able to tolerate PO and rates pain level at 4 which he states is acceptable for him. Will dc home Departure - Departure Time of Disposition: 17:02 Disposition: Home, Self-Care 01 Condition: Good Clinical Impression: Chronic pancreatitis - Discharge Information Instructions: Low-Fat Diet for Pancreatitis or Gallbladder Conditions, Acute Pancreatitis Forms: ED Department Discharge Additional Instructions: Follow up with Dr. Cervantes as needed.
[2017-02-05 15:18] LABS: CHLORIDE,CL 105 mmol/L (101-111); SODIUM,NA 143 mmol/L (135-145)
[2017-02-05] MEDS ORDERED: Acetaminophen/HYDROcodone 325-10 MG Tab PO ONE (16:07)
[2017-02-05 17:10] VITALS: BP 146/107
== END 2017-02-05 17:28 | disposition home or self-care (01) ==
LOC: DL.ED 12:59
DX: K86.1 Other chronic pancreatitis (principal); H54.7 Unspecified visual loss; F41.9 Anxiety disorder, unspecified; F32.9 Major depressive disorder, single episode, unspecified; F17.210 Nicotine dependence, cigarettes, uncomplicated; Z90.49 Acquired absence of other specified parts of digestive tract; Z91.048 Other nonmedicinal substance allergy status; Z79.899 Other long term (current) drug therapy
CPT/HCPCS: 36415; 71020; 80048; 81001; 82150; 83690; 85025; 96361; 96374; 96375; 96376; 99284; A9270; J1170; J2405; J7030

== ENCOUNTER 2017-02-06 09:36 | Inpatient (IN) | payer MEDICAID ==
[2017-02-06] MEDS ORDERED: Sodium Chloride 0.9% 10 ML Syringe FLUSH PRN (09:49)
[2017-02-06] MEDS ORDERED: Ondansetron 4 MG/2 ML SDV IVPUSH PRN (09:49)
[2017-02-06] MEDS ORDERED: Zolpidem 5 MG Tab PO PRN (09:49)
[2017-02-06] MEDS ORDERED: Acetaminophen 325 MG Tab PO PRN (09:49)
[2017-02-06] MEDS: Morphine 2 MG/ML Syringe IVPUSH PRN ×6 (10:26→22:34)
[2017-02-06 10:43] LABS: CHLORIDE,CL 105 mmol/L (101-111); SODIUM,NA 140 mmol/L (135-145)
--- NOTE | 2017-02-06 11:31 | PCM.HP ---
H&P History of Present Illness - General Date of Service: 02/06/17 Admit Problem/Dx: Admission Diagnosis/Problem Admission Diagnosis/Problem Pancreatitis Source of Information: Patient - History of Present Illness Initial Comments - Free Text/Narative: presented with abdominal pain. h/o recurrent abdominal pain presumed to be from recurrent pancreatitis on chronic continuous narcotic use taking percocet 10/325 mg developed increased abdominal pain about 3 days [employer], associated with nausea, vomiting had er visit with partial relief only no associated fever, no diarrhea, in er noted leukocytosis - Related Data Allergies/Adverse Reactions: Allergies Allergy/AdvReac Type Severity Reaction Status Date / Time cats Allergy Itching Uncoded 02/06/17 09:45 Home Medications: Home Meds Omeprazole [Prilosec] 20 mg PO BID 10/27/13 [History] Amylase/Lipase/Protease [Creon DR 24,000 Unit] 5 cap PO TIDMEALS 02/23/14 [ History] Escitalopram [Lexapro] 20 mg PO DAILY 09/02/14 [History] Ondansetron [Zofran ODT] 4 mg PO Q4H PRN #20 tab.dis 03/15/15 [Rx] Pregabalin [Lyrica] 75 mg PO TID 03/07/16 [History] oxyCODONE HCl/Acetaminophen [Endocet 10-325 mg Tablet] 1 tab PO Q6HR PRN [History] Past Medical History - Past Health History Medical/Surgical History: Denies Medical/Surgical History HEENT History: Reports: Impaired Vision Other HEENT History: wears glasses Cardiovascular History: Reports: None Respiratory History: Reports: None Gastrointestinal History: Reports: Pancreatitis Other Gastrointestinal History: Stents placed in pancrease, sphinctor of bessy surgery . 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 Stone was removed last summer in December-Jan Hematologic History: Reports: None Immunologic History: Reports: None Oncologic (Cancer) History: Reports: None Dermatologic History: Reports: Other (See Below) Other Dermatologic History: allergic to cats - Infectious Disease History Infectious Disease History: Reports: Chicken Pox, Shingles - Past Surgical History Head Surgeries/Procedures: Reports: None HEENT Surgical History: Reports: None GI Surgical History: Reports: Cholecystectomy, Colostomy, EGD Endocrine Surgical History: Reports: None Musculoskeletal Surgical History: Reports: None Dermatological Surgical History: Reports: None Social & Family History - Family History Family Medical History: Noncontributory Cardiac: Reports: CAD, Stent Respiratory: Reports: None GI: Reports: None Neurological: Reports: CVA Oncologic: Reports: Breast, Other (See Below) Other Oncologic Family History: STOMACH - Tobacco Use Smoking Status *Q: Current Every Day Smoker Years of Tobacco use: 18 Packs/Tins Daily: 0.3 Used Tobacco, but Quit: No Month Tobacco Last Used: 2 weeks Second Hand Smoke Exposure: No - Caffeine Use Caffeine Use: Reports: None - Alcohol Use Days Per Week of Alcohol Use: 0 - Recreational Drug Use Recreational Drug Use: Yes Drug Use in Last 12 Months: Yes Recreational Drug Type: Reports: Marijuana/Hashish Recreational Drug Use Frequency: Weekly Recreational Drug Last Use: 02/03/17 - Living Situation & Occupation Living situation: Reports: Single, Alone Occupation: Unemployed H&P Review of Systems - Review of Systems: Review Of Systems: See Below General: Denies: Fever, Chills Pulmonary: Denies: Shortness of Breath Cardiovascular: Denies: Chest Pain Gastrointestinal: Reports: Abdominal Pain. Denies: Diarrhea Genitourinary: Denies: Dysuria Psychiatric: Denies: Confusion Exam - Exam Exam: See Below - Vital Signs Weight: 120.111 kg - Exam General: Alert, Oriented Neck: Supple Lungs: Clear to Auscultation, Normal Respiratory Effort Cardiovascular: Regular Rate GI/Abdominal Exam: Tender. No: Distended, Rigid, Rebound Extremities: No Pedal Edema Peripheral Pulses: 1+: Carotid (L) Skin: Warm, Dry Neuro Extensive - Mental Status: Alert, Oriented x3, Normal Mood/Affect - Patient Data Lab Results Last 24 hrs: Laboratory Results - last 24 hr 02/06/17 02/06/17 02/06/17 Range/Units 10:02 10:02 10:02 WBC 16.5 H (5.0-10.0) 10^3/uL RBC 4.82 (4.6-6.2) 10^6/uL Hgb 14.6 (14.0-18.0) g/dL Hct 44.4 (40.0-54.0) % MCV 92.1 (80-100) fL MCH 30.3 (27.0-34.0) pg MCHC 32.9 L (33.0-35.0) g/dL Plt Count 201 (150-450) 10^3/uL Neut % (Auto) 80.1 H (42.2-75.2) % Lymph % (Auto) 13.4 L (20.5-50.1) % [place] % (Auto) 5.3 (2-8) % Eos % (Auto) 0.8 L (1.0-3.0) % Baso % (Auto) 0.4 (0.0-1.0) % Sodium 140 (135-145) mmol/L Potassium 3.7 (3.6-5.0) mmol/L Chloride 105 (101-111) mmol/L Carbon Dioxide 24.0 (21.0-31.0) mmol/L Anion Gap 14.7 BUN 13 (7-18) mg/dL Creatinine 0.8 (0.6-1.3) mg/dL Est Cr Clr Drug Dosing 151.20 mL/min Estimated GFR (MDRD) > 60 Glucose 110 H (74-105) mg/dL Lactic Acid 1.2 (0.5-2.2) mmol/L Calcium 9.2 (8.4-10.2) mg/dl Total Bilirubin 1.0 (0.2-1.0) mg/dL Direct Bilirubin 0.1 (0.0-0.2) mg/dL Indirect Bilirubin 0.9 AST 23 (10-42) IU/L ALT 19 (10-60) IU/L Alkaline Phosphatase 59 (42-121) IU/L Total Protein 7.3 (6.7-8.2) g/dl Albumin 4.5 (3.2-5.5) g/dl Globulin 2.8 Albumin/Globulin Ratio 1.61 Lipase 38 (22-51) U/L Result Diagrams: 02/06/17 10:02 02/06/17 10:02 *Q Meaningful Use (ADM) - VTE *Q VTE Criteria *Q: - Stroke *Q Stroke Criteria *Q: - AMI *Q AMI Criteria *Q: - Problem List (1) Abdominal pain SNOMED Code(s): 41608201 ICD Code: R10.9 - UNSPECIFIED ABDOMINAL PAIN Status: Acute Current Visit : No Problem List Initiated/Reviewed/Updated: Yes Orders Last 24hrs: Active Orders 24 hr Category Date Time Status Patient Status [ADT] Routine ADT 02/06/17 09:49 Active Antiembolic Devices [RC] PER UNIT ROUTINE Care 02/06/17 09:51 Active Cooling Warming Measures [RC] ASDIRECTED Care 02/06/17 11:17 Ordered Oxygen Therapy [RC] PRN Care 02/06/17 09:49 Active Peripheral IV Care [RC] . DIRECTED Care 02/06/17 09:51 Active Up With Assistance [RC] ASDIRECTED Care 02/06/17 09:49 Active VTE/DVT Education [RC] PER UNIT ROUTINE Care 02/06/17 09:49 Active Vital Signs [RC] Q4H Care 02/06/17 09:49 Active Nothing per Oral Now Diet [DIET] Diet 02/06/17 Lunch Active Abdomen Pelvis w Cont [CT] Routine Exams 02/06/17 11:22 Ordered BASIC METABOLIC PANEL,BMP [CHEM] AM Lab 02/07/17 05:11 Ordered CBC WITH AUTO DIFF [HEME] AM Lab 02/07/17 05:15 Ordered CULTURE BLOOD [BC] Stat Lab 02/06/17 10:02 Received CULTURE BLOOD [BC] Stat Lab 02/06/17 10:07 Received CULTURE URINE [RM] Routine Lab 02/06/17 09:49 Uncollected DRUG SCREEN, URINE [URCHEM] Routine Lab 02/06/17 11:18 Uncollected HEPATIC FUNCTION PANEL,HFP [CHEM] AM Lab 02/07/17 05:11 Ordered LIPASE [CHEM] AM Lab 02/07/17 05:11 Ordered MAGNESIUM [CHEM] AM Lab 02/07/17 05:11 Ordered PHOSPHORUS [CHEM] AM Lab 02/07/17 05:11 Ordered UA W/MICROSCOPIC [URIN] Routine Lab 02/06/17 09:49 Uncollected Acetaminophen [Tylenol] Med 02/06/17 09:49 Active 650 mg PO Q4H PRN Heparin Sodium Med 02/06/17 14:00 Active 5,000 units SUBCUT Q8HR Morphine Med 02/06/17 09:49 Active 2 mg IVPUSH Q2H PRN Ondansetron [Zofran] Med 02/06/17 09:49 Active 4 mg IVPUSH Q6H PRN Sodium Chloride 0.9% [Saline Flush] Med 02/06/17 09:49 Active 10 ml FLUSH ASDIRECTED PRN Sodium Chloride 0.9% with KCl 20 mEq @ 150 mL/Hr (1000 Med 02/06/17 11:30 Ordered mL) NS + KCl 20mEq/L [Normal Saline with 20 mEq KCl] 1,000 ml IV ASDIRECTED Zolpidem [Ambien] Med 02/06/17 09:49 Active 5 mg PO BEDTIME PRN Antiembolic Hose [OM.PC] Per Unit Routine Oth 02/06/17 09:50 Ordered Blood Culture x2 Reflex Set [OM.PC] Stat Oth 02/06/17 09:49 Ordered K Pad [Heat Therapy] [OM.PC] Routine Oth 02/06/17 11:17 Ordered Peripheral IV Insertion Adult [OM.PC] Routine Oth 02/06/17 09:49 Ordered Resuscitation Status Routine Resus Stat 02/06/17 09:49 Ordered Medication Orders Acetaminophen (Tylenol) 650 mg PO Q4H PRN PRN Reason: Pain (Mild 1-3)/fever Heparin Sodium (Porcine) (Heparin Sodium) 5,000 units SUBCUT Q8HR BRAEDEN Potassium Chloride/Sodium Chloride (Normal Saline With 20 Meq Kcl) 1,000 mls @ 150 mls/hr IV ASDIRECTED BRAEDEN Morphine Sulfate (Morphine) 2 mg IVPUSH Q2H PRN PRN Reason: Pain (severe 7-10) Last Admin: 02/06/17 10:26 Dose: 2 mg Ondansetron HCl (Zofran) 4 mg IVPUSH Q6H PRN PRN Reason: Nausea/Vomiting Sodium Chloride (Saline Flush) 10 ml FLUSH ASDIRECTED PRN PRN Reason: Keep Vein Open Last Admin: 02/06/17 10:31 Dose: 10 ml Zolpidem Tartrate (Ambien) 5 mg PO BEDTIME PRN PRN Reason: Sleep Assessment/Plan Comment:: 31-year-old gentleman with a history of recurrent abdominal pain usually presumed to be from recurrent pancreatitis. The patient has been on chronic narcotics at home. He presented with the acute on chronic pain associated with nausea vomiting. The Percocet that he has been taking at home is not helping. He cannot eat. He was in the emergency room yesterday symptomatic treatment was provided returned home. Pain and nausea vomiting continued. #1 abdominal pain associated with nausea and vomiting For further workup will obtain CT abdomen Most likely due to acute on chronic pancreatitis. Will keep nothing by mouth, IV fluids, IV narcotic pain medications, antiemetics Start IV proton pump inhibitor Repeat liver enzymes and lipase in the morning Obtain urine analysis, blood cultures to evaluate for leukocytosis Leukocytosis might be from nausea and vomiting as well. #2 Smoking Will use nicotine patch 3. DVT prophylaxis with SQ heparin
[2017-02-06] MEDS ORDERED: Barium Sulfate w/v 2.1% Oral Susp 450 ML Bottle PO ONE (11:39)
[2017-02-06] MEDS ORDERED: Iopamidol 612 MG/ML 100 ML Bottle IVPUSH ONE (11:39)
[2017-02-06] MEDS: NS + KCl 20mEq/L 1,000 ML IV SCH ×2 (12:05→21:24)
[2017-02-06] MEDS: Nicotine 7 MG/24 Hr Patch TRDERM SCH (12:45)
[2017-02-06] MEDS: Pantoprazole 40 MG Vial IVPUSH SCH ×2 (12:45→20:36)
[2017-02-06] MEDS: Heparin Sodium 5,000 Units/ML Vial SUBCUT SCH ×2 (14:32→22:00)
[2017-02-06] MEDS: Ciprofloxacin in D5W 400 MG in Premix Bag 1 BAG IV SCH ×2 (17:17)
[2017-02-06] MEDS: metroNIDAZOLE/Normal Saline 500 MG in Premix Bag 100 BAG IV SCH (18:49)
[2017-02-07] MEDS: metroNIDAZOLE/Normal Saline 500 MG in Premix Bag 100 BAG IV SCH ×3 (00:10→16:39)
[2017-02-07] MEDS: Morphine 2 MG/ML Syringe IVPUSH PRN ×6 (00:52→16:39)
[2017-02-07] MEDS: Ciprofloxacin in D5W 400 MG in Premix Bag 1 BAG IV SCH ×4 (04:36→18:21)
[2017-02-07] MEDS: Heparin Sodium 5,000 Units/ML Vial SUBCUT SCH ×3 (05:55→22:11)
[2017-02-07] MEDS: NS + KCl 20mEq/L 1,000 ML IV SCH (06:28)
[2017-02-07 07:09] LABS: CHLORIDE,CL 103 mmol/L (101-111); SODIUM,NA 140 mmol/L (135-145)
[2017-02-07] MEDS: Nicotine 7 MG/24 Hr Patch TRDERM SCH (09:10)
[2017-02-07] MEDS: Pantoprazole 40 MG Vial IVPUSH SCH ×2 (09:10→20:57)
[2017-02-07] MEDS ORDERED: Morphine 2 MG/ML Syringe IVPUSH PRN (18:00)
[2017-02-07] MEDS: oxyCODONE 5 MG Tab PO PRN (20:55)
[2017-02-08] MEDS: metroNIDAZOLE/Normal Saline 500 MG in Premix Bag 100 BAG IV SCH ×3 (00:02→18:12)
[2017-02-08] MEDS: Ciprofloxacin in D5W 400 MG in Premix Bag 1 BAG IV SCH ×2 (05:03)
[2017-02-08] MEDS: Heparin Sodium 5,000 Units/ML Vial SUBCUT SCH ×2 (06:07→16:51)
[2017-02-08] MEDS: oxyCODONE 5 MG Tab PO PRN (06:33)
[2017-02-08] MEDS ORDERED: AMYLASE PO SCH (08:00)
[2017-02-08] MEDS ORDERED: PROTEASE PO SCH (08:00)
[2017-02-08] MEDS ORDERED: LIPASE PO SCH (08:00)
[2017-02-08] MEDS: Pantoprazole 40 MG Vial IVPUSH SCH (08:03)
[2017-02-08] MEDS: Nicotine 7 MG/24 Hr Patch TRDERM SCH (08:08)
[2017-02-08] MEDS: AMYLASE PO SCH ×3 (08:55→18:12)
[2017-02-08] MEDS: PROTEASE PO SCH ×3 (08:55→18:12)
[2017-02-08] MEDS: LIPASE PO SCH ×3 (08:55→18:12)
--- NOTE | 2017-02-08 09:07 | PN ---
DATE: 02/07/2017 HISTORY OF PRESENT ILLNESS: Mr. Tavares is a 31-year-old male, well known to the staff from multiple previous visits, spoke to the ER and for admission. He has a longstanding history of chronic abdominal pain, thought to be due to chronic pancreatitis with frequent exacerbations. This admission was felt to be another acute on chronic pancreatitis. Joe has been followed by Dr. Gordon and has been seen at the [facility]. He is followed by Dr. Gomez Jacob. 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 At times, his LFTs have been elevated, and other times, it is not. His last ERCP prior to that had been in 2013 with a sphincterotomy and removal of a stent. He had been doing fairly well. He now presents again for admission with acute pain. At the time of this admission, he had lipase of 38. The remainder of his LFTs were normal. Lactic acid was normal at 1.2. Renal function was preserved. White count was 16.5. Hemoglobin, hematocrit, and platelets were normal. A CT scan of the abdomen and pelvis was performed with intravenous contrast, and it showed that he actually had thickening of the wall of the colon from the cecum to the mid-transverse colon consistent with a colitis. There was no significant pericolic inflammatory stranding and no evidence of bowel necrosis. Small bowel was unremarkable. Impression was that of acute colitis from the cecum to the mid-transverse colon. He was admitted and was started on IV ciprofloxacin as well as IV metronidazole. He was given IV morphine 2 mg on a p.r.n. basis for abdominal pain. The first night, he asked for this every 2 hours. Over the day-to-day, this has improved, and we have lengthened the interval, and we have added oral oxycodone back to his regimen, which is what he takes at home. He was kept n.p.o. His diet was advanced to clear liquid diet. He tolerated that well, and in the morning, we will advance into a soft mechanical diet. His mother did bring in his Creon capsules, and these were also restarted at 5 capsules with meals. He takes 15 capsules daily over the course of the day. LAB WORK: Shows normal white count of 9.7. Hemoglobin, hematocrit, and platelets are stable. Electrolytes are normal. Renal function has not changed. LFTs show total bilirubin of 1.2, and lipase has risen to 61. Other studies at admission included negative urinalysis and urine toxicology which was positive for opiates, which he does take as well as marijuana. Two sets of blood cultures remained without growth. His mother is present in the room. She has a number of issues and demanded to know "what was going on." Joe had been given information by Dr. Severino the day before at the time of admission, and we confirmed this with Joe as well as a diagnosis he was given, and this was shared with his mother. PHYSICAL EXAMINATION: General: He is clearly feeling better. He is up and ambulatory talking to the staff at length. Vital Signs: Blood pressure is 121/77, pulse 70 and regular, respiratory rate 16 and unlabored, and oxygen saturation is 98% on room air. He is afebrile. HEENT: Unremarkable. Chest: Shows clear with diminished bilateral breath sounds. Heart: Shows regular rate and rhythm. Abdomen: Obese and soft without guarding or rebound. Neurologic: He is up and ambulatory without assistance. IMPRESSION: A 31-year-old male with a long history of acute on chronic abdominal pain, thought to be secondary to acute on chronic pancreatitis, now presents with radiographic evidence for colitis from the cecum to the mid- transverse colon. PLAN: Joe is scheduled to return to the [facility] next week for repeat ERCP on February 12. We asked that he contact Dr. Jacob as he probably would have fast access, and we asked him to tell him that he is in the hospital, but has been diagnosed with colitis and has been on IV antibiotics in the event that they want to cancel or postpone the planned ERCP or possibly add some other study. He did try to contact him today, but was unsuccessful, though he did leave messages for Dr. Jacob's metal moulder's assistant. We will see that the copies of the current CAT scan also go with Joe to the visit. Diet will be advanced in the morning. His pain regimen has been adjusted, so that he is now receiving less IV opioids and is now returned to his usual oral opioid regimen. He clearly has improved and is up and ambulatory. MODL /[id number]
[2017-02-08 14:28] VITALS: BP 121/61
[2017-02-08] MEDS ORDERED: metroNIDAZOLE 250 MG Tab PO ONE (16:16)
[2017-02-08] MEDS ORDERED: Ciprofloxacin 500 MG Tab PO ONE (16:16)
--- NOTE | 2017-05-10 18:12 | DISCH ---
DISCHARGE DIAGNOSES: 1. Chronic pancreatitis with frequent exacerbations of pain. 2. Chronic abdominal pain secondary to above. 3. Unremarkable labs. 4. Chronic tobacco abuse. BRIEF HISTORY OF PRESENT ILLNESS: Joe is a 31-year-old male, well known to the staff from multiple ER and hospital admissions. He presents once again with acute abdominal pain, felt to be another episode of acute on chronic pancreatitis. Joe is followed by Dr. Gordon and Dr. Gomez Jacob at the [facility]. He has been extensively worked up. He has had sphincterotomies, he has had stents all in effort to relieve the chronic pancreatitis. His last ERCP was in 2013. PERTINENT LABS AND X-RAYS: CBC showed initial white count of 16,500, and at the time of discharge 9700. Hemoglobin and hematocrit were stable. Platelets were normal. Electrolytes were normal. LFTs were normal. BUN and creatinine were 10 and 0.8 with a GFR of more than 60. Magnesium was normal at 1.9. Lipase was 38 on admission, nadeen to 61 (22 to 51 and the following day was back down to 26). Lactic acid was normal at 1.2. Urinalysis showed yellow, slightly cloudy urine with a specific gravity of 1.020, negative microscopic, many bacteria. Urine toxicology was positive for opiates and oxycodone as well as marijuana and negative for all other substances tested. Microbiology, 2 sets of blood cultures and urine culture both showed no growth. CT scan of the abdomen and pelvis with the use of IV contrast was obtained. He is status post cholecystectomy. There was no biliary ductal dilatation. No splenomegaly. There was thickening of the wall of the colon from the cecum to the transverse colon consistent with colitis. No evidence of bowel obstruction. No evidence to suggest acute appendicitis. HOSPITAL COURSE: Joe was admitted as an acute inpatient. He initially was kept n.p.o. and then advanced to a clear liquid diet and to mechanical soft diet. He was started on IV fluids. Heparin was used for VTE prophylaxis. Zofran was used for nausea and vomiting. Nicotine patch was placed as he does continue to smoke cigarettes on daily basis. He was started on Cipro 400 mg IV every 12 hours and metronidazole 500 mg every 8 hours for the finding of probable acute colitis on the CT scan. IV morphine was used for pain management. Joe improved. Labs remained stable. On the day prior to discharge, his mother was present in the room and she demanded to know "what was going on." Joe had been given information by Dr. Severino, the day before at the time of admission, and we confirmed this with Joe and from his mother and then the same information was shared with his mother. I was in touch with the gastroenterology fellow rag production worker at [facility], covering for Dr. Jacob. Joe is scheduled to return to the [facility] next week on 02/12 for a repeat ERCP. We asked that we wanted to be in contact with him to inform him of the colitis and the fact that Joe had been on IV antibiotics in case there was any reason to postpone or cancel the planned ERCP. Joe's diet was advanced. He tolerated this. Review of his clinical data shows that he is taking in fluids he was voiding and moving his bowels. He was tolerating 100% of his meals. His vital signs were stable and he was afebrile. PHYSICAL EXAMINATION: Vital Signs: On the day of discharge blood pressure was 121/61, pulse 89, respiratory rate 20, oxygen saturation 100% on room air. He is afebrile. HEENT: Unremarkable. The sclerae were nonicteric. Conjunctivae not injected. ENT was clear. Chest: Showed clear but diminished bilateral breath sounds. Heart: Showed regular rate and rhythm. Abdomen: Soft, obese, benign. No guarding, no rebound. Extremities: Examination legs showed the calves to be soft and nontender. Neurological: He is intact. He is up and ambulatory without assistance. DISCHARGE PLAN: He will be discharged home with self-care in good condition. He should follow his usual diet as tolerated, activity as tolerated. He will follow up in clinic with Dr. Gordon, his primary care provider, and he will be in touch with Dr. Gomez Jacob at the [facility] regarding followup as well. DISCHARGE MEDICATIONS: 1. He will continue on his pancreatic enzymes 5 capsules 3 times a day with meals. 2. He will continue on Cipro 500 mg twice a day over the next 3 days. 3. He will also take metronidazole 500 mg 3 times a day for the next 3 days. 4. Lexapro 20 mg daily. 5. Omeprazole 20 mg twice a day. 6. Zofran 4 mg every 4 hours p.r.n. nausea and vomiting. 7. Lyrica 75 mg 3 times a day. 8. He will continue using oxycodone 10 mg 1 every 6 hours p.r.n. for pain. 9. He will continue to stay on the antibiotics until he is seen at [facility] next week. 10.He should return to the ER if there are any new issues or concerns. CONDITION AT THE TIME OF DISCHARGE: Improved and stable. CODE STATUS: Full code. MOD /[id number]
== END 2017-02-08 17:35 | disposition home or self-care (01) | DRG 392 ==
LOC: DL.MS 09:39 → UNDOADMIN 09:39 → DL.MS 09:49
PROVIDERS: ADMIT Internal Medicine; ATTEND Internal Medicine
DX: K52.9 Noninfective gastroenteritis and colitis, unspecified (principal); K86.1 Other chronic pancreatitis; Z79.891 Long term (current) use of opiate analgesic; F41.9 Anxiety disorder, unspecified; F32.9 Major depressive disorder, single episode, unspecified; F17.210 Nicotine dependence, cigarettes, uncomplicated; Z91.048 Other nonmedicinal substance allergy status; Z79.899 Other long term (current) drug therapy
CPT/HCPCS: 36415; 74177; 80048; 80076; 80305; 81001; 82247; 83605; 83690; 83735; 84100; 85025; 87040; 87086; A9270-GY; C9113; J0744; J1644; J2270; J2405; J3480; J7050; Q9967

== ENCOUNTER 2017-02-25 13:33 | Emergency (ER) | payer MEDICAID ==
[2017-02-25 15:52] VITALS: BP 173/102
[2017-02-25] MEDS ORDERED: Sodium Chloride 0.9% 1,000 ML IV ONE (15:56)
--- NOTE | 2017-02-25 16:00 | EDM.PDOC ---
ED HPI GENERAL MEDICAL PROBLEM - General Chief Complaint: Abdominal Pain Stated Complaint: PANCREAS Time Seen by Provider: 02/25/17 15:58 Source of Information: Reports: Patient History Limitations: Reports: No Limitations - History of Present Illness INITIAL COMMENTS - FREE TEXT/NARRATIVE: 31 yo white male w/ PMHx. Chronic Pancreatic problems. Pt. s/p abdomen procedure @ [facility]. Pt. states he wants pain med. stronger than percocet. Pt. states abd. pain after eating sausage this am Onset Date: 02/25/17 Onset Time: 12:00 Duration: Hour(s): Location: Reports: Abdomen Severity: Moderate Improves with: Reports: None Worsens with: Reports: None Associated Symptoms: Reports: Nausea/Vomiting Right Abdomen Pain Score (Numeric/FACES): 9 - Related Data Allergies Allergy/AdvReac Type Severity Reaction Status Date / Time cats Allergy Itching Uncoded 02/06/17 09:45 Home Meds: Home Meds Omeprazole [Prilosec] 20 mg PO BID 10/27/13 [History] Amylase/Lipase/Protease [Creon DR 24,000 Unit] 5 cap PO TIDMEALS 02/23/14 [ History] Escitalopram [Lexapro] 20 mg PO DAILY 09/02/14 [History] Ondansetron [Zofran ODT] 4 mg PO Q4H PRN #20 tab.dis 03/15/15 [Rx] Pregabalin [Lyrica] 75 mg PO TID 03/07/16 [History] oxyCODONE HCl/Acetaminophen [Endocet 10-325 mg Tablet] 1 tab PO Q6HR PRN [History] Ciprofloxacin [Ciprofloxacin HCl] 500 mg PO BID #6 tablet 02/08/17 [Rx] metroNIDAZOLE [Metronidazole] 500 mg PO TID #9 tablet 02/08/17 [Rx] Past Medical History - Past Health History Medical/Surgical History: Denies Medical/Surgical History HEENT History: Reports: Impaired Vision Other HEENT History: wears glasses Cardiovascular History: Reports: None Respiratory History: Reports: None Gastrointestinal History: Reports: Pancreatitis Other Gastrointestinal History: Stents placed in pancrease, sphinctor of bessy surgery . 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 Stone was removed last summer in December-Jan Hematologic History: Reports: None Immunologic History: Reports: None Oncologic (Cancer) History: Reports: None Dermatologic History: Reports: Other (See Below) Other Dermatologic History: allergic to cats - Infectious Disease History Infectious Disease History: Reports: Chicken Pox, Shingles - Past Surgical History Head Surgeries/Procedures: Reports: None HEENT Surgical History: Reports: None GI Surgical History: Reports: Cholecystectomy, Colostomy, EGD Endocrine Surgical History: Reports: None Musculoskeletal Surgical History: Reports: None Dermatological Surgical History: Reports: None Social & Family History - Family History Family Medical History: Unobtainable Cardiac: Reports: CAD, Stent Respiratory: Reports: None GI: Reports: None Neurological: Reports: CVA Oncologic: Reports: Breast, Other (See Below) Other Oncologic Family History: STOMACH - Tobacco Use Smoking Status *Q: Current Every Day Smoker Years of Tobacco use: 18 Packs/Tins Daily: 0.3 Used Tobacco, but Quit: No Month Tobacco Last Used: 2 weeks Second Hand Smoke Exposure: No - Caffeine Use Caffeine Use: Reports: None - Alcohol Use Days Per Week of Alcohol Use: 0 - Recreational Drug Use Recreational Drug Use: Yes Drug Use in Last 12 Months: Yes Recreational Drug Type: Reports: Marijuana/Hashish Recreational Drug Use Frequency: Weekly Recreational Drug Last Use: 02/03/17 - Living Situation & Occupation Living situation: Reports: Single, Alone Occupation: Unemployed ED ROS GENERAL - Review of Systems Review Of Systems: See Below Constitutional: Reports: No Symptoms HEENT: Reports: No Symptoms Respiratory: Reports: No Symptoms Cardiovascular: Reports: No Symptoms Endocrine: Reports: No Symptoms GI/Abdominal: Reports: Abdominal Pain : Reports: No Symptoms Musculoskeletal: Reports: No Symptoms Skin: Reports: No Symptoms Neurological: Reports: No Symptoms Psychiatric: Reports: No Symptoms, Hallucinations ED EXAM, GI/ABD - Physical Exam Exam: See Below Exam Limited By: No Limitations General Appearance: Alert Eyes: Bilateral: EOMI Ears: Normal External Exam Nose: Normal Inspection Throat/Mouth: Normal Inspection Head: Atraumatic Neck: Normal Inspection Respiratory/Chest: No Respiratory Distress Cardiovascular: Normal Peripheral Pulses GI/Abdominal Exam: Tender (epigastric), Abnormal Bowel Sounds (decreased) Back Exam: Normal Inspection Extremities: Normal Inspection, Normal Range of Motion Neurological: Alert, Oriented, CN II-XII Intact Psychiatric: Anxious Skin Exam: Warm Lymphatic: No Adenopathy Course - Vital Signs Text/Narrative:: Patient case reviewed and discussed with Dr. Gordon and Dr. Gomez Jacob( Frank @ [facility]) Last Recorded V/S: Last Vital Signs Temp 35.2 C L 02/25/17 15:50 Pulse 71 02/25/17 15:50 Resp 16 02/25/17 15:50 BP 173/102 H 02/25/17 15:50 Pulse Ox 98 02/25/17 15:50 - Orders/Labs/Meds Orders: Active Orders 24 hr Category Date Time Status UA W/MICROSCOPIC [URIN] Stat Lab 02/25/17 15:56 Uncollected Labs: Laboratory Tests 02/25/17 02/25/17 Range/Units 16:05 16:05 WBC 16.1 H (5.0-10.0) 10^3/uL RBC 5.16 (4.6-6.2) 10^6/uL Hgb 16.0 (14.0-18.0) g/dL Hct 47.2 (40.0-54.0) % MCV 91.5 (80-100) fL MCH 31.0 (27.0-34.0) pg MCHC 33.9 (33.0-35.0) g/dL Plt Count 257 (150-450) 10^3/uL Neut % (Auto) 87.8 H (42.2-75.2) % Lymph % (Auto) 7.4 L (20.5-50.1) % [place] % (Auto) 4.5 (2-8) % Eos % (Auto) 0.1 L (1.0-3.0) % Baso % (Auto) 0.2 (0.0-1.0) % Sodium 142 (135-145) mmol/L Potassium 4.4 (3.6-5.0) mmol/L Chloride 102 (101-111) mmol/L Carbon Dioxide 20.0 L (21.0-31.0) mmol/L Anion Gap 24.4 BUN 22 H (7-18) mg/dL Creatinine 1.4 H (0.6-1.3) mg/dL Est Cr Clr Drug Dosing 86.40 mL/min Estimated GFR (MDRD) 59 BUN/Creatinine Ratio 15.71 Glucose 147 H (74-105) mg/dL Calcium 9.9 (8.4-10.2) mg/dl Total Bilirubin 1.1 H (0.2-1.0) mg/dL AST 29 (10-42) IU/L ALT 30 (10-60) IU/L Alkaline Phosphatase 69 (42-121) IU/L Total Protein 8.4 H (6.7-8.2) g/dl Albumin 5.4 (3.2-5.5) g/dl Globulin 3.0 Albumin/Globulin Ratio 1.80 Amylase 57 (28-100) U/L Lipase 24 (22-51) U/L Meds: Medications Discontinued Medications Generic Name Dose Route Start Last Admin Trade Name Freq PRN Reason Stop Dose Admin Hydromorphone HCl 2 mg 02/25/17 16:53 02/25/17 17:13 Dilaudid IVPUSH 02/25/17 16:54 2 mg ONETIME ONE Administration Hydromorphone HCl Confirm 02/25/17 17:07 02/25/17 17:14 Dilaudid Administered 02/25/17 17:08 Not Given Dose 1 mg .ROUTE .STK-MED ONE Sodium Chloride 1,000 mls @ 999 mls/hr 02/25/17 15:56 02/25/17 16:24 Normal Saline IV 02/25/17 16:56 999 mls/hr .BOLUS ONE Administration Ciprofloxacin/Dextrose 400 mg/ 200 mls @ 200 mls/hr 02/25/17 16:53 02/25/17 17:16 Premix IV 02/25/17 17:52 200 mls/hr ONETIME ONE Administration Departure - Departure Time of Disposition: 18:13 Disposition: Home, Self-Care 01 Condition: Good Clinical Impression: Dehydration Chronic pain Qualifiers: Chronic pain type: chronic pain syndrome Qualified Code(s): G89.4 - Chronic pain syndrome - Discharge Information Forms: ED Department Discharge Additional Instructions: Your Case was discussed with Dr. Gordon and Dr. Gomez Jacob Rest Stop fatty foods and increase Fresh Fruits and Vegetables Sip Clear Fluids ( WATER) Take your medications prescribed only F/U w/ your medical providers - My Orders Last 24 Hours: My Active Orders 02/25/17 15:56 UA W/MICROSCOPIC [URIN] Stat - Assessment/Plan Last 24 Hours: My Active Orders 02/25/17 15:56 UA W/MICROSCOPIC [URIN] Stat
[2017-02-25] MEDS ORDERED: HYDROmorphone 1 MG/ML Syringe IVPUSH ONE (16:53)
[2017-02-25] MEDS ORDERED: Ciprofloxacin in D5W 400 MG in Premix Bag 1 BAG IV ONE ×2 (16:53)
[2017-02-25] MEDS ORDERED: HYDROmorphone 1 MG/ML Syringe ONE (17:07)
== END 2017-02-25 18:52 | disposition home or self-care (01) ==
LOC: EEVIPCON 13:33 → DL.ED 13:33
DX: G89.4 Chronic pain syndrome (principal); R10.9 Unspecified abdominal pain; E86.0 Dehydration; F32.9 Major depressive disorder, single episode, unspecified; F17.210 Nicotine dependence, cigarettes, uncomplicated; Z98.890 Other specified postprocedural states; Z90.49 Acquired absence of other specified parts of digestive tract; Z79.899 Other long term (current) drug therapy; Z91.09 Other allergy status, other than to drugs and biological substances
CPT/HCPCS: 36415; 74020; 80053; 82150; 83690; 85025; 96361; 96365; 96375; 99284; J0744; J1170; J7030

== ENCOUNTER 2020-11-30 09:48 | Emergency (ER) | payer BC, MEDICAID ==
[2020-11-30] MEDS ORDERED: diphenhydrAMINE 50 MG/ML SDV IVPUSH ONE (10:25)
[2020-11-30] MEDS ORDERED: Lactated Ringers 1,000 ML IV ONE (10:25)
[2020-11-30] MEDS ORDERED: Sodium Chloride 0.9% 10 ML Syringe FLUSH PRN (10:26)
[2020-11-30] MEDS ORDERED: Haloperidol Lactate 5 MG/ML SDV IVPUSH ONE ×2 (10:26→12:34)
[2020-11-30] MEDS ORDERED: Morphine 4 MG/ML Syringe IVPUSH ONE (10:27)
--- NOTE | 2020-11-30 10:28 | EDM.PDOC ---
ED HPI GENERAL MEDICAL PROBLEM - General Chief Complaint: Abdominal Pain Stated Complaint: VOMITTING ALL MORNING PAIN RIGHT UPPER STOMACH Time Seen by Provider: 11/30/20 10:15 Source of Information: Reports: Patient History Limitations: Reports: No Limitations - History of Present Illness INITIAL COMMENTS - FREE TEXT/NARRATIVE: Patient comes emergency department today from home with complaints of abdominal pain nausea vomiting and diarrhea. This patient has a quite extensive history of chronic pancreatitis. He has recently moved to the area since about June. Typically gets his treatment prior to this in [facility]. He has not had a flare of his chronic pancreatitis for about 7 months he reports. He did miss his daily Creon enzymes yesterday as he was working on moving some stuff and he wonders if this is not why he has his symptoms today. Starting about this morning he started to have nausea vomiting and epigastric pain. No chest pain no shortness of breath or difficulty breathing. No fever no chills. Has had nausea vomiting and dry heaves. He has also had loose stools. No fever no chills. No recent antibiotic usage. No recent travel otherwise. No flank pain. No hematuria dysuria or urinary frequency. No black or bloody stools. This is a very typical presentation of his chronic pancreatitis. He did have an appointment with his primary care provider this afternoon but he was unable to go due to his nausea and vomiting. - Related Data Allergies Allergy/AdvReac Type Severity Reaction Status Date / Time cat dander Allergy Itching Verified 11/30/20 10:24 Home Meds: Home Meds Omeprazole [Prilosec] 20 mg PO BID 10/27/13 [History] Amylase/Lipase/Protease [Parag DR 24,000 Unit] 5 cap PO ASDIRECTED 02/23/14 [History] Ondansetron [Zofran ODT] 8 mg PO BID PRN 07/11/18 [History] Promethazine [Phenergan] 25 mg PO Q6H PRN #10 tab 09/21/19 [Rx] HYDROmorphone [Dilaudid] 2 mg PO BID PRN 12/09/19 [History] Morphine [MS Contin] 2 mg PO TID 12/09/19 [History] Past Medical History - Past Health History Medical/Surgical History: Denies Medical/Surgical History HEENT History: Reports: Impaired Vision Other HEENT History: wears glasses Cardiovascular History: Reports: None Respiratory History: Reports: None Gastrointestinal History: Reports: GERD, Other (See Below) Other Gastrointestinal History: Stents placed in pancreas, sphinctor of bessy surgery . gastroparesis, chronic pancreatitis. Genitourinary History: Reports: None Musculoskeletal History: Reports: Back Pain, Chronic Neurological History: Reports: None Psychiatric History: Reports: Addiction, Anxiety, Depression Endocrine/Metabolic History: Reports: Obesity/BMI 30+ Other Endocrine/Metabolic History: Pancreatic devisium diagnosed Summer 2015. Stone was removed summer-Jan Hematologic History: Reports: None Immunologic History: Reports: None Oncologic (Cancer) History: Reports: None Dermatologic History: Reports: Other (See Below) Other Dermatologic History: allergic to cats - Infectious Disease History Infectious Disease History: Reports: Chicken Pox, Shingles - Past Surgical History Head Surgeries/Procedures: Reports: None GI Surgical History: Reports: Cholecystectomy, EGD, ERCP Social & Family History - Family History Family Medical History: No Pertinent Family History Cardiac: Reports: CAD, Stent Respiratory: Reports: None GI: Reports: None Neurological: Reports: CVA Oncologic: Reports: Breast, Other (See Below) Other Oncologic Family History: STOMACH - Tobacco Use Tobacco Use Status *Q: Current Every Day Tobacco User Years of Tobacco use: 10 Packs/Tins Daily: 0.5 Second Hand Smoke Exposure: No - Caffeine Use Caffeine Use: Reports: Coffee, Soda - Recreational Drug Use Recreational Drug Use: Yes Drug Use in Last 12 Months: Yes Recreational Drug Type: Reports: Marijuana/Hashish Recreational Drug Use Frequency: Weekly - Living Situation & Occupation Living situation: Reports: Single, Alone 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 ED EXAM, GI/ABD - Physical Exam Exam: See Below Exam Limited By: No Limitations General Appearance: Alert, WD/WN, Mild Distress, Active Emesis (actively dry heaving. ) Eyes: Bilateral: EOMI Throat/Mouth: Normal Inspection Head: Atraumatic, Normocephalic Neck: Normal Inspection, Supple, Non-Tender, Full Range of Motion Respiratory/Chest: No Respiratory Distress, Lungs Clear, Normal Breath Sounds, No Accessory Muscle Use, Chest Non-Tender Cardiovascular: Normal Peripheral Pulses, Regular Rate, Rhythm GI/Abdominal Exam: Normal Bowel Sounds, Soft, Tender (Epigastric). No: Guarding, Rigid, Rebound (Male) Exam: Deferred Rectal (Males) Exam: Deferred Back Exam: Normal Inspection Extremities: Normal Inspection, Normal Range of Motion, No Pedal Edema, Normal Capillary Refill Neurological: Alert, Oriented, Normal Cognition, No Motor/Sensory Deficits Psychiatric: Anxious Skin Exam: Intact, Cool, Diaphoretic, Pallor Course - Vital Signs Last Recorded V/S: Last Vital Signs Temp 96.2 F L 11/30/20 10:27 Pulse 86 11/30/20 12:12 Resp 20 11/30/20 10:27 BP 131/87 11/30/20 12:12 Pulse Ox 100 11/30/20 10:27 - Orders/Labs/Meds Orders: Active Orders 24 hr Category Date Time Status Peripheral IV Insertion Adult [OM.PC] Stat Oth 11/30/20 10:24 Ordered Labs: Laboratory Tests 11/30/20 11/30/20 11/30/20 Range/Units 10:00 10:00 10:21 WBC 15.1 H (5.0-10.0) 10^3/uL RBC 4.72 (4.6-6.2) 10^6/uL Hgb 14.1 D (14.0-18.0) g/dL Hct 42.6 (40.0-54.0) % MCV 90.3 (80-100) fL MCH 29.9 (27.0-34.0) pg MCHC 33.1 (33.0-35.0) g/dL Plt Count 200 (150-450) 10^3/uL Sodium (136-145) mmol/L Potassium (3.5-5.1) mmol/L Chloride (98-107) mmol/L Carbon Dioxide (21-32) mmol/L Anion Gap (7-13) mEq/L BUN (7-18) mg/dL Creatinine (0.70-1.30) mg/dL Est Cr Clr Drug Dosing mL/min Estimated GFR (MDRD) BUN/Creatinine Ratio (No establ ref range) Glucose (70-99) mg/dL Lactic Acid (0.4-2.0) mmol/L Calcium (8.5-10.1) mg/dL Total Bilirubin (0.2-1.0) mg/dL AST (15-37) U/L ALT (16-63) U/L Alkaline Phosphatase (46-116) U/L Total Protein (6.4-8.2) g/dL Albumin (3.4-5.0) g/dL Globulin Albumin/Globulin Ratio Lipase (73-393) U/L Urine Color Yellow (YELLOW) Urine Appearance Clear (CLEAR) Urine pH 5.5 (5.0-9.0) Ur Specific Clune 1.025 (1.005-1.030) Urine Protein Negative (NEGATIVE) Urine Glucose (UA) Negative (NEGATIVE) Urine Ketones Negative (NEGATIVE) Urine Occult Blood Negative (NEGATIVE) Urine Nitrite Negative (NEGATIVE) Urine Bilirubin Negative (NEGATIVE) Urine Urobilinogen 0.2 (0.2-1.0) mg/dL Ur Leukocyte Esterase Negative (NEGATIVE) Urine Opiates Screen Negative (NEGATIVE) Ur Oxycodone Screen Negative (NEGATIVE) Urine Methadone Screen Negative (NEGATIVE) Ur Barbiturates Screen Negative (NEGATIVE) U Tricyclic Antidepress Negative (NEGATIVE) Ur Phencyclidine Scrn Negative (NEGATIVE) Ur Amphetamine Screen Negative (NEGATIVE) U Methamphetamines Scrn Negative (NEGATIVE) Urine MDMA Screen Negative (NEGATIVE) U Benzodiazepines Scrn Negative (NEGATIVE) Urine Cocaine Screen Negative (NEGATIVE) U Marijuana (THC) Screen Positive H (NEGATIVE) Ethyl Alcohol (0) mg/dL 11/30/20 11/30/20 11/30/20 Range/Units 10:21 10:21 10:49 WBC (5.0-10.0) 10^3/uL RBC (4.6-6.2) 10^6/uL Hgb (14.0-18.0) g/dL Hct (40.0-54.0) % MCV (80-100) fL MCH (27.0-34.0) pg MCHC (33.0-35.0) g/dL Plt Count (150-450) 10^3/uL Sodium 144 (136-145) mmol/L Potassium 4.5 (3.5-5.1) mmol/L Chloride 107 (98-107) mmol/L Carbon Dioxide 29 (21-32) mmol/L Anion Gap 12.5 (7-13) mEq/L BUN 13 (7-18) mg/dL Creatinine 0.84 (0.70-1.30) mg/dL Est Cr Clr Drug Dosing 142.71 mL/min Estimated GFR (MDRD) > 60 BUN/Creatinine Ratio 15.5 (No establ ref range) Glucose 112 H (70-99) mg/dL Lactic Acid 1.2 (0.4-2.0) mmol/L Calcium 8.9 (8.5-10.1) mg/dL Total Bilirubin 0.4 (0.2-1.0) mg/dL AST 16 (15-37) U/L ALT 30 (16-63) U/L Alkaline Phosphatase 86 (46-116) U/L Total Protein 7.0 (6.4-8.2) g/dL Albumin 3.9 (3.4-5.0) g/dL Globulin 3.1 Albumin/Globulin Ratio 1.3 Lipase 305 (73-393) U/L Urine Color (YELLOW) Urine Appearance (CLEAR) Urine pH (5.0-9.0) Ur Specific Clune (1.005-1.030) Urine Protein (NEGATIVE) Urine Glucose (UA) (NEGATIVE) Urine Ketones (NEGATIVE) Urine Occult Blood (NEGATIVE) Urine Nitrite (NEGATIVE) Urine Bilirubin (NEGATIVE) Urine Urobilinogen (0.2-1.0) mg/dL Ur Leukocyte Esterase (NEGATIVE) Urine Opiates Screen (NEGATIVE) Ur Oxycodone Screen (NEGATIVE) Urine Methadone Screen (NEGATIVE) Ur Barbiturates Screen (NEGATIVE) U Tricyclic Antidepress (NEGATIVE) Ur Phencyclidine Scrn (NEGATIVE) Ur Amphetamine Screen (NEGATIVE) U Methamphetamines Scrn (NEGATIVE) Urine MDMA Screen (NEGATIVE) U Benzodiazepines Scrn (NEGATIVE) Urine Cocaine Screen (NEGATIVE) U Marijuana (THC) Screen (NEGATIVE) Ethyl Alcohol < 3 (0) mg/dL Meds: Medications Discontinued Medications Generic Name Dose Route Start Last Admin Trade Name Freq PRN Reason Stop Dose Admin Diphenhydramine HCl 25 mg 11/30/20 10:25 11/30/20 11:01 Diphenhydramine 50 Mg/Ml Sdv IVPUSH 11/30/20 10:26 25 mg ONETIME ONE Administration Haloperidol Lactate 2.5 mg 11/30/20 10:26 11/30/20 11:02 Haloperidol Lactate 5 Mg/Ml Sdv IVPUSH 11/30/20 10:27 2.5 mg ONETIME ONE Administration Haloperidol Lactate 2.5 mg 11/30/20 12:34 11/30/20 12:59 Haloperidol Lactate 5 Mg/Ml Sdv IVPUSH 11/30/20 12:35 2.5 mg ONETIME ONE Administration Lactated Ringer's 1,000 mls @ 1,000 mls/hr 11/30/20 10:25 11/30/20 11:01 Ringers, Lactated IV 11/30/20 11:24 1,000 mls/hr .BOLUS ONE Administration Morphine Sulfate 4 mg 11/30/20 10:27 11/30/20 11:01 Morphine 4 Mg/Ml Syringe IVPUSH 11/30/20 10:28 4 mg ONETIME ONE Administration Sodium Chloride 10 ml 11/30/20 10:26 11/30/20 12:11 Sodium Chloride 0.9% 10 Ml Syringe FLUSH 10 ml ASDIRECTED PRN Administration Keep Vein Open - Re-Assessments/Exams Free Text/Narrative Re-Assessment/Exam: 11/30/20 11:27 Difficult IV start I had to place one with an US. LR 1 liter wide open. Benadryl 25mg IVP Haldol 2.5mg IVP Morphine 4mg IVP Labs drawn to include a urine. Laboratory evaluation with a WBC of 15.1 this is most likely due to his vomiting. CMP with a glucose of 112 otherwise unremarkable. Lactic acid normal at 1.2. Normal lipase 305. Normal liver enzymes. Urinalysis negative for any acute infectious process blood. Urine drug screen positive for marijuana. Alcohol less than 3. Patient continued to have some nausea and vomiting but did have improvement of the pain after the above therapy. Haldol was repeated at 2.5 mg IV push. Patient does feel quite a bit better. His pain is almost completely resolved. His nausea not completely gone but he is not vomiting anymore. He would like to get going so he could see his primary care provider today at 2:00. His laboratory evaluation is rather unremarkable. We will discharge him home at this time with some Phenergan for nausea. Make sure he is eating and drinking appropriately. Ensuring that he is taking his pancreas enzymes. Follow-up with primary care this afternoon as planned. Discharge directions as below are explained to the patient he was comfortable with this plan and his questions are answered. Departure - Departure Time of Disposition: 13:14 Disposition: Home, Self-Care 01 Clinical Impression: Nausea vomiting and diarrhea, Chronic recurrent pancreatitis, Abdominal pain, chronic, generalized - Discharge Information Instructions: Nausea and Vomiting, Adult, [id number], Nausea, Adult, [id number], Pain Medicine Instructions, [id number], Diarrhea, Adult, [id number] Forms: ED Department Discharge Additional Instructions: Continue with your previous medications. Make sure that you are taking your Creon as prescribed. 3 times a day with meals. Make sure and drink plenty of fluids especially electrolyte containing fluids such as gatorade and or powerade. Slowly advance your diet. No dairy products until symptoms free for 48 hrs. Phenergan 1 tablet every 6 hrs as needed for nausea or vomiting. caution sedation. RX given to the patient. #12. Return to the ED if new or worsening symptoms. Follow up with PCP in the next 2-4 days if not improving sooner if worse. Sepsis Event Note (ED) - Evaluation Sepsis Screening Result: No Definite Risk - Focused Exam Vital Signs: Vital Signs Temp Pulse Resp BP Pulse Ox 11/30/20 12:12 86 131/87 11/30/20 10:27 96.2 F L 78 20 166/109 H 100 - My Orders Last 24 Hours: My Active Orders 11/30/20 10:24 Peripheral IV Insertion Adult [OM.PC] Stat - Assessment/Plan Last 24 Hours: My Active Orders 11/30/20 10:24 Peripheral IV Insertion Adult [OM.PC] Stat
[2020-11-30 10:45] LABS: ANION GAP 12.5 mEq/L (7-13); CHLORIDE,CL 107 mmol/L (98-107); SODIUM,NA 144 mmol/L (136-145)
[2020-11-30 12:12] VITALS: BP 131/87; PULSE 86
== END 2020-11-30 13:25 | disposition home or self-care (01) ==
LOC: DL.ED 09:48
DX: K86.1 Other chronic pancreatitis (principal); R11.2 Nausea with vomiting, unspecified; R19.7 Diarrhea, unspecified; E66.9 Obesity, unspecified; K21.9 Gastro-esophageal reflux disease without esophagitis; Z68.39 Body mass index [BMI] 39.0-39.9, adult; Z91.048 Other nonmedicinal substance allergy status; Z79.899 Other long term (current) drug therapy
CPT/HCPCS: 36415; 80053; 80305; 80307; 81003; 83605; 83690; 85027; 96374; 96375; 96376; 99284; J1200; J1630; J2270; J7120